=== PATIENT | female | born 1940 | race Caucasian/White ===

== ENCOUNTER 2018-07-21 13:03 | Inpatient (IN) ==
--- NOTE | 2018-07-21 14:52 | CT ---
EXAM: CT of the chest without contrast History: Cough. Comparison: CT abdomen pelvis 07/21/2018 Technique: Multiplanar CT images through the thorax were obtained without the administration of IV c ontrast Findings: Heart size is upper limits of normal. Trace pericardial fluid. Coronary calcifications. No thoracic aortic aneurysm. No pathologically enlarged thoracic lymph nodes. No consolidation. N o pleural fluid and no pneumothorax. 6 mm noncalcified nodule within the right middle lobe coronal i mage number 20. Bilateral calcified lung nodules. For details in the upper abdomen, please see dedicated CT abdomen pelvis done on the same day. Fluid is seen distending the stomach. No acute osseous abnormalities. Impression: 1. No acute intrathoracic process. 2. Coronary artery disease and trace pericardial fluid. 3. 6 mm indeterminate right middle lobe noncalcified nodule. Recommend follow-up chest CT in 6 jelani hs
--- NOTE | 2018-07-21 14:55 | CT ---
Exam: CT abdomen pelvis without intravenous contrast. Comparison: 12/26/2009. Reason for exam: Pain with diarrhea. FINDINGS: Image interpretation is limited by the lack of intravenous contrast administration. No pleural effusion, or focal consolidation in the partially imaged lung bases. Emphysematous disease is seen in the partially imaged lung bases. The spleen and adrenal glands appear grossly unremarkable. The gallbladder appears grossly unremarkable within limitations of a noncontrasted study. 1.3 cm hyperdense cystic structure in the left kidney on axial image number 22. No hydronephrosis or ureterolithiasis in either kidney. The bladder appears grossly unremarkable. Moderate stool burden is seen within the rectal vault. Fluid-filled loops of nondilated small bowel are seen throughout the abdomen and pelvis. 3.5 x 2.0 cm lipoma in the ascending colon on coronal image number 37. The appendix is not definitiv zoila seen. No inflammatory changes are seen in the expected location of the appendix. Atherosclerotic disease is seen within the aorta and distal arterial vasculature. Degenerative disease is seen in the lumbosacral spine. No suspicious appearing osteoblastic or osteo lytic lesion. Image interpretation of the osseous structures is limited by diffuse osseous demineralization. Healed left pelvic fracture. IMPRESSION: Fluid-filled loops of nondilated small bowel seen throughout the abdomen pelvis may be p hysiologic but could also represent enteritis. 2. Moderate stool burden in the rectal vault raising consideration for constipation/impaction. 3. Ascending colon lipoma measuring 3.5 x 2.0 cm. 4. Healed pelvic fractures. 5. Hyperdensity in the left kidney likely hemorrhagic cysts. Ultrasound could be performed for furt her characterization
[2018-07-21] MEDS ORDERED: CITRATE OF MAGNESIA PO STA (15:10)
[2018-07-21] MEDS: AMARYL PO SCH (16:56)
[2018-07-21] MEDS: GLUCOPHAGE PO SCH (16:56)
[2018-07-21] MEDS: SODIUM CHLORIDE 1,000 ML IV SCH (16:57)
[2018-07-21] MEDS ORDERED: NON-FORMULARY MEDICATION (Metformin Hcl [Glucophage] 1,000 MG) PO SCH (17:00)
[2018-07-21] MEDS ORDERED: NON-FORMULARY MEDICATION (Glimepiride [Amaryl] 4 MG) PO SCH (17:00)
[2018-07-21] MEDS ORDERED: HALDOL ONE (20:47)
[2018-07-21] MEDS ORDERED: HALDOL IM STA (20:55)
[2018-07-22] MEDS: SODIUM CHLORIDE 1,000 ML IV SCH ×2 (05:11→20:55)
[2018-07-22] MEDS: SYNTHROID PO SCH (05:35)
[2018-07-22] MEDS: TOPROL XL PO SCH (08:53)
[2018-07-22] MEDS: K-DUR PO SCH (08:59)
[2018-07-22] MEDS: HYDROCHLOROTHIAZIDE PO SCH (08:59)
[2018-07-22] MEDS: PLAVIX PO SCH (08:59)
[2018-07-22] MEDS: AMARYL PO SCH ×2 (08:59→16:39)
[2018-07-22] MEDS ORDERED: NON-FORMULARY MEDICATION (Atorvastatin Calcium [Lipitor] 40 MG) PO SCH (09:00)
[2018-07-22] MEDS: NORVASC PO SCH (09:00)
[2018-07-22] MEDS: ONGLYZA PO SCH (09:00)
[2018-07-22] MEDS: LIPITOR PO SCH (09:00)
[2018-07-22] MEDS: COZAAR PO SCH (09:00)
[2018-07-22] MEDS: GLUCOPHAGE PO SCH ×2 (09:00→16:40)
[2018-07-22] MEDS ORDERED: NON-FORMULARY MEDICATION (Losartan Potassium 50 MG) PO SCH (09:00)
[2018-07-22] MEDS ORDERED: LOVENOX ONE (09:17)
[2018-07-22] MEDS: LOVENOX SUBCUT SCH (09:18)
--- NOTE | 2018-07-22 09:42 | PCM.PROG ---
Attending Provider: ATTENDING PROVIDER: Dr. FALGUNI ALCALA DATE OF SERVICE: 07/22/18 SUBJECTIVE: This 77 year old WHITE/ F was hospitalized 07/21/18 with severe constipation and possible large bowel obstruction. The patient is able to pass stool around impaction with diarrhea. Dementia is worsening. Skin is dry. BUN and creatinine abnormal and Hypokalemia. The patient's condition has improved this morning. Her hydration seems to have improved. Skin Turgor getting better. is in the room as expected. REVIEW OF SYSTEMS: CONSTITUTIONAL: No night sweats. No fatigue, malaise, lethargy. No fever or chills. HEENT: Eyes: No visual changes. No eye pain. No eye discharge. ENT: No runny nose. No epistaxis. No sinus pain. No odynophagia. No congestion. RESPIRATORY: No cough, no congestion. No hemoptysis. No shortness of breath. CARDIOVASCULAR: No angina symptoms. No CHF symptoms. No atypical chest pain for CAD. No palpitations. No orthopnea.. GASTROINTESTINAL: No abdominal pain. No nausea or vomiting. No diarrhea or constipation. No hematemesis. No hematochezia. GENITOURINARY: No urgency. No frequency. No dysuria. No hematuria. No obstructive symptoms. No discharge. No pain. No significant abnormal bleeding. MUSCULOSKELETAL: No musculoskeletal pain; no joint swelling. NEUROLOGICAL: Awake, alert, oriented to time, place and person. No headache. No neck pain. No syncope. No seizures. No dizziness. PSYCHIATRIC: Not anxious. No depression. No suicidal thoughts. No homicidal thoughts. SKIN: No rash. No lesions. No wounds. ENDOCRINE: No unexplained weight loss. No weight gain. HEMATOLOGIC/LYMPHATIC: No anemia. No purpura. No petechiae. No prolonged or excessive bleeding. No palpable lymph nodes. PHYSICAL EXAMINATION: GENERAL: The patient is awake, alert and oriented, lying in bed in no distress. VITAL SIGNS: Temperature 97.4 F, Pulse 105, Respiratory Rate 18, BP 119/79, Pulse Ox 96% HEENT: Head normocephalic, atraumatic. Eyes: Extraocular muscles are intact. Pupils are equal, round and reactive to light and accommodation. Ears: No lesions. Nose appeared normal. Throat: No exudate or erythema. NECK: Supple. No JVD, no carotid bruit. No lymphadenopathy or thyromegaly. LUNGS: Clear to auscultation. Percussion note normal. Chest symmetrical. HEART: S1, S2, no S3. No murmurs. No cyanosis or clubbing. No ascites. Pulses: Dorsalis pedis and posterior tibial pulses +1 to +2 both sides. ABDOMEN: Soft. Non-tender. Bowel sounds active. No CVA tenderness. No mass felt. EXTREMITIES: No edema. Full range of motion of all extremities, equal. NEUROLOGIC: No focal deficit. Cranial nerves II through XII are grossly intact. No headache, no double vision or headache. SKIN: Warm and dry. Intact. Turgor-normal. LYMPHATIC: No palpable lymph nodes/no lymphedema. MUSCULOSKELETAL: Normal joints with no swelling. Muscle tone is normal. LAB REVIEW: 07/22/18 04:30 07/22/18 04:30 07/22/18 04:30: Sodium 139.0, Potassium 2.90 L, Chloride 98.7, Carbon Dioxide 28.4, Anion Gap 14.80, BUN 31.4 H, Creatinine 1.32 H, Estimated GFR (MDRD) 39.00 , BUN/Creatinine Ratio 23.78, Glucose 123.8 H D, Calcium 8.97, Total Bilirubin 0.55, AST 33.5, ALT 14.0, Alkaline Phosphatase 55.1, Total Protein 6.80, Albumin 4.16, Globulin 2.64, Albumin/Globulin Ratio 1.57 07/22/18 04:30: WBC 8.51, RBC 4.79, Hgb 13.9, Hct 42.6, MCV 88.9, MCH 29.0, MCHC 32.6, RDW Coeff of Kenji 13.2, Plt Count 328, Immature Gran % (Auto) 0.6, Neut % (Auto) 59.0, Lymph % (Auto) 31.0, [place] % (Auto) 8.3, Eos % (Auto) 0.7, Baso % (Auto) 0.4, Immature Gran # (Auto) 0.1, Neut # (Auto) 5.0, Lymph # (Auto ) 2.6, [place] # (Auto) 0.7, Eos # (Auto) 0.1, Baso # (Auto) 0.0 07/21/18 17:00: Urine Color Yellow, Urine Clarity Cloudy, Urine pH 5.5, Ur Specific [place] 1.020, Urine Protein Trace, Urine Glucose (UA) Negative, Urine Ketones 1+, Urine Blood Trace-intact, Urine Nitrite Positive, Urine Bilirubin Negative, Urine Urobilinogen 0.2, Ur Leukocyte Esterase 3+, Urine Microscopic RBC 2-5, Urine Microscopic WBC 10-20, Ur Squamous Epith Cells 2-5, Urine Bacteria 3+ 07/21/18 13:55: Influ A Molecular Assay Negative by naat, Influ B Molecular Assay Negative by naat 07/21/18 13:50: Lactic Acid 3.81 H 07/21/18 13:50: Procalcitonin 0.05 07/21/18 13:50: Sodium 138.6, Potassium 3.22 L, Chloride 95.5 L, Carbon Dioxide 26.0, Anion Gap 20.32, BUN 37.8 H, Creatinine 1.73 H, Estimated GFR (MDRD) 28.00 , BUN/Creatinine Ratio 21.84, Glucose 237.3 H, Calcium 9.37, Total Bilirubin 0.78, AST 31.1, ALT 15.0, Alkaline Phosphatase 59.7, Total Protein 7.20, Albumin 4.52, Globulin 2.68, Albumin/Globulin Ratio 1.68 07/21/18 13:50: WBC 9.24, RBC 4.46, Hgb 13.3, Hct 40.1, MCV 89.9, MCH 29.8, MCHC 33.2, RDW Coeff of Kenji 13.3, Plt Count 349, Immature Gran % (Auto) 0.3, Neut % (Auto) 63.4, Lymph % (Auto) 28.2, [place] % (Auto) 7.0, Eos % (Auto) 0.5, Baso % (Auto) 0.6, Immature Gran # (Auto) 0.0, Neut # (Auto) 5.8, Lymph # (Auto ) 2.6, [place] # (Auto) 0.7, Eos # (Auto) 0.1, Baso # (Auto) 0.1 ASSESSMENT: Please see below. 1. Fecal impaction 2. Dehydration 3. Dementia 4. Diabetes Mellitus 5. Hypokalemia PLAN: 1. Hydrate patient. 2. Fleets and soap enema 3. Monitor CBC and CMP 4. Patient on stool softener. 5. All diagnosis explained to . 6. K-tab 20meq three times a day Plan and coordination of the patient's care discussed in the presence of Editor Index and nurse. SCRIBED BY: DENISE FOSTER Meter Changes Records Clerk scribed while in presence of service performed by Dr. FALGUNI ALCALA on 07/22/18 ([id number])
[2018-07-22] MEDS ORDERED: BACTRIM DS 800/160 MG PO SCH (11:00)
[2018-07-22] MEDS: BACTRIM DS 800/160 MG PO SCH ×2 (13:10→21:39)
[2018-07-22] MEDS ORDERED: MILK OF MAGNESIA PO PRN (18:48)
[2018-07-23] MEDS: SYNTHROID PO SCH (06:02)
[2018-07-23] MEDS ORDERED: ROCEPHIN 1 GM in SODIUM CHLORIDE 50 ML IV STA (08:17)
[2018-07-23] MEDS ORDERED: GLUCOPHAGE PO SCH ×2 (08:21→17:30)
--- NOTE | 2018-07-23 08:56 | PCM.PROG ---
Attending Provider: ATTENDING PROVIDER: Dr. FALGUNI ALCALA This patient is seen with Nona Dunn, Nurse Practitioner. DATE OF SERVICE: 07/23/18 SUBJECTIVE: This 77 year old WHITE/ F was hospitalized 07/21/18. The patient is resting comfortably. She still isn't eating much. Potassium is lower. The patient had two bowel movements. REVIEW OF SYSTEMS: CONSTITUTIONAL: No night sweats. No fatigue, malaise, lethargy. No fever or chills. HEENT: Eyes: No visual changes. No eye pain. No eye discharge. ENT: No runny nose. No epistaxis. No sinus pain. No odynophagia. No congestion. RESPIRATORY: No cough, no congestion. No hemoptysis. No shortness of breath. CARDIOVASCULAR: No angina symptoms. No CHF symptoms. No atypical chest pain for CAD. No palpitations. No orthopnea.. GASTROINTESTINAL: No abdominal pain. No nausea or vomiting. Constipation. No hematemesis. No hematochezia. Decreased appetite. GENITOURINARY: No urgency. No frequency. No dysuria. No hematuria. No obstructive symptoms. No discharge. No pain. No significant abnormal bleeding. MUSCULOSKELETAL: No musculoskeletal pain; no joint swelling. Weakness. NEUROLOGICAL: Awake, alert, oriented to time, place and person. No headache. No neck pain. No syncope. No seizures. No dizziness. PSYCHIATRIC: Not anxious. No depression. No suicidal thoughts. No homicidal thoughts. SKIN: No rash. No lesions. No wounds. ENDOCRINE: No unexplained weight loss. No weight gain. HEMATOLOGIC/LYMPHATIC: No anemia. No purpura. No petechiae. No prolonged or excessive bleeding. No palpable lymph nodes. PHYSICAL EXAMINATION: GENERAL: The patient is awake, alert and oriented, lying in bed in no distress. VITAL SIGNS: Temperature 98.5 F, Pulse 83, Respiratory Rate 20, BP 117/68, Pulse Ox 97% HEENT: Head normocephalic, atraumatic. Eyes: Extraocular muscles are intact. Pupils are equal, round and reactive to light and accommodation. Ears: No lesions. Nose appeared normal. Throat: No exudate or erythema. NECK: Supple. No JVD, no carotid bruit. No lymphadenopathy or thyromegaly. LUNGS: Diminished breath sounds. Clear to auscultation. Percussion note normal. Chest symmetrical. HEART: Regular rate. S1, S2, no S3. No murmurs. No cyanosis or clubbing. No ascites. Pulses: Dorsalis pedis and posterior tibial pulses +1 to +2 both sides. ABDOMEN: Soft. Non-tender. Bowel sounds active. No CVA tenderness. No mass felt. EXTREMITIES: No edema. Full range of motion of all extremities, equal. NEUROLOGIC: No focal deficit. Cranial nerves II through XII are grossly intact. No headache, no double vision or headache. Flat affect. SKIN: Not dry. Intact. Turgor-normal. LYMPHATIC: No palpable lymph nodes/no lymphedema. MUSCULOSKELETAL: Normal joints with no swelling. Muscle tone is normal. LAB REVIEW: 07/23/18 05:20 07/23/18 05:20 07/23/18 05:20: Sodium 140.3, Potassium 3.08 L, Chloride 103.5, Carbon Dioxide 28.3, Anion Gap 11.58, BUN 15.5, Creatinine 1.11, Estimated GFR (MDRD) 47.00, BUN/Creatinine Ratio 13.96, Glucose 67.4 L, Calcium 8.35 L, Total Bilirubin 0.44 , AST 27.9, ALT 11.1, Alkaline Phosphatase 49.7 L, Total Protein 5.66 L, Albumin 3.37 L, Globulin 2.29, Albumin/Globulin Ratio 1.47 07/23/18 05:20: WBC 6.33, RBC 3.80 L, Hgb 11.3 L, Hct 34.1 L D, MCV 89.7, MCH 29.7, MCHC 33.1, RDW Coeff of Kenji 13.5, Plt Count 291, Immature Gran % (Auto) 0.2, Neut % (Auto) 48.6, Lymph % (Auto) 41.4, [place] % (Auto) 7.7, Eos % (Auto) 1.6, Baso % (Auto) 0.5, Immature Gran # (Auto) 0.0, Neut # (Auto) 3.1, Lymph # ( Auto) 2.6, [place] # (Auto) 0.5, Eos # (Auto) 0.1, Baso # (Auto) 0.0 07/22/18 15:28: Total Creatine Kinase 64.4, Troponin I 0.050 07/22/18 09:16: TSH 5.860 H 07/22/18 09:16: Free T4 2.21 H ASSESSMENT: Please see below. 1. Acute dehydration 2. Constipation 3. Dementia 4. Hypokalemia 5. UTI, culture pending. PLAN: 1. Potassium 20meq PO three times a day 2. Discontinue Amaryl 3. 1 gram Rocephin IV once Plan and coordination of the patient's care discussed in the presence of Archery Instructor and nurse. SCRIBED BY: Kelly THURSTON scribed while in presence of service performed by Dr. Alcala/Nona Dunn APRN on 07/23/18 ([id number])
[2018-07-23] MEDS: LIPITOR PO SCH ×2 (09:20→11:26)
[2018-07-23] MEDS: BACTRIM DS 800/160 MG PO SCH ×2 (09:20→11:26)
[2018-07-23] MEDS: HYDROCHLOROTHIAZIDE PO SCH ×2 (09:20→11:26)
[2018-07-23] MEDS: K-DUR PO SCH ×5 (09:20→16:40)
[2018-07-23] MEDS: PLAVIX PO SCH ×2 (09:20→11:27)
[2018-07-23] MEDS: NORVASC PO SCH ×2 (09:20→11:25)
[2018-07-23] MEDS: COZAAR PO SCH ×2 (09:21→11:25)
[2018-07-23] MEDS: TOPROL XL PO SCH ×2 (09:21→11:27)
[2018-07-23] MEDS: SODIUM CHLORIDE 1,000 ML IV SCH (09:21)
[2018-07-23] MEDS: LOVENOX SUBCUT SCH (09:22)
[2018-07-23] MEDS: AMARYL PO SCH (11:16)
[2018-07-23] MEDS: GLUCOPHAGE PO SCH (11:17)
[2018-07-23] MEDS: DEXTROSE 5%-1/2NS IV SOLUTION 1,000 ML IV SCH (12:08)
[2018-07-23] MEDS: ONGLYZA PO SCH (12:09)
[2018-07-24] MEDS: DEXTROSE 5%-1/2NS IV SOLUTION 1,000 ML IV SCH (02:45)
[2018-07-24] MEDS: SYNTHROID PO SCH (05:36)
[2018-07-24] MEDS: COZAAR PO SCH (08:44)
[2018-07-24] MEDS: ROCEPHIN 1 GM in SODIUM CHLORIDE 50 ML IV SCH (08:44)
[2018-07-24] MEDS: LIPITOR PO SCH (08:44)
[2018-07-24] MEDS: PLAVIX PO SCH (08:45)
[2018-07-24] MEDS: K-DUR PO SCH ×3 (08:45→17:45)
[2018-07-24] MEDS: NORVASC PO SCH (08:45)
[2018-07-24] MEDS: LOVENOX SUBCUT SCH (08:45)
[2018-07-24] MEDS: TOPROL XL PO SCH (08:45)
[2018-07-24] MEDS: HYDROCHLOROTHIAZIDE PO SCH (08:45)
--- NOTE | 2018-07-24 12:10 | DI ---
EXAM: Abdomen one-view HISTORY: Diarrhea FINDINGS: Normal bowel gas pattern. No pathologic calcifications. No large free intraperitoneal ga s. No abundance of retained colonic stool. No acute findings of the skeleton. IMPRESSION: Normal bowel gas pattern.
[2018-07-24] MEDS: HUMULIN R SUBCUT PRN ×2 (17:50→20:22)
[2018-07-25] MEDS: SYNTHROID PO SCH (05:37)
[2018-07-25] MEDS: HUMULIN R SUBCUT PRN ×3 (05:47→21:20)
[2018-07-25] MEDS: ROCEPHIN 1 GM in SODIUM CHLORIDE 50 ML IV SCH (08:13)
[2018-07-25] MEDS: HYDROCHLOROTHIAZIDE PO SCH (08:13)
[2018-07-25] MEDS: COZAAR PO SCH (08:13)
[2018-07-25] MEDS: PLAVIX PO SCH (08:13)
[2018-07-25] MEDS: TOPROL XL PO SCH (08:14)
[2018-07-25] MEDS: NORVASC PO SCH (08:14)
[2018-07-25] MEDS: K-DUR PO SCH ×3 (08:14→16:53)
[2018-07-25] MEDS: LIPITOR PO SCH (08:16)
[2018-07-25] MEDS: LOVENOX SUBCUT SCH (08:17)
[2018-07-25] MEDS ORDERED: HALDOL IM STA (15:06)
[2018-07-26] MEDS: SYNTHROID PO SCH (05:43)
--- NOTE | 2018-07-26 07:45 | PN ---
DATE OF SERVICE: 07/22/18 SUBJECTIVE: The patient was hospitalized with fecal impaction also has UTI with gram negative rods. The patient will be started on Septra. The patient also has atrial fibrillation which she never had it before. For now we will start her on Lovenox 1mg per kg. Very likely the patient is going to need Eliquis. We will also do echocardiogram to evaluate LV function and also LA size and valvular structures. The effects of Eliquis discussed with the and the patient. The patient is confused, disoriented but alert and up and about and does all activity of daily living. CONDITION: Stable. CHADS 2 VASC score more than 4. TIME SPENT: More than 30 minutes. Plan and coordination of the patient's care discussed in the presence of nurse. MICHELLE
--- NOTE | 2018-07-26 09:00 | PN ---
DATE OF SERVICE: 07/23/18 SUBJECTIVE: The patient was seen and examined with Nurse Practitioner. The patient had hypoglycemia spelled. Amaryl has been taken off. Atrial fibrillation has subsided. This morning she is in sinus rhythm. First degree AV block. The patient is demented but alert when I saw her this afternoon. The is with her . She was feeling a lot better. She was confused but alert. PHYSICAL EXAMINATION: HEENT: Head normocephalic, atraumatic. Eyes: Extraocular muscles are intact. Pupils are equal, round and reactive to light and accommodation. Ears: No lesions. Nose appeared normal. Throat: No exudate or erythema. NECK: Supple. No JVD, no carotid bruit. No lymphadenopathy or thyromegaly. LUNGS: Clear to auscultation. Percussion note normal. Chest symmetrical. HEART: S1, S2, no S3. No murmurs. No cyanosis or clubbing. No ascites. Pulses: Dorsalis pedis and posterior tibial pulses +1 to +2 bilaterally. ABDOMEN: Soft. Nontender. Bowel sounds active. No CVA tenderness. No mass felt. EXTREMITIES: No edema. Full range of motion of all extremities, equal. NEUROLOGIC: No focal deficit. Cranial nerves II through XII are grossly intact. No headache, no double vision or headache. SKIN: Not dry. Intact. Turgor - normal. LYMPHATIC: No palpable lymph nodes/no lymphedema. MUSCULOSKELETAL: Normal joints with no swelling. Muscle tone is normal. CONDITION: Improving. TIME SPENT: More than 30 minutes. Plan and coordination of the patient's care discussed in the presence of nurse. MICHELLE
[2018-07-26] MEDS: TOPROL XL PO SCH (09:19)
[2018-07-26] MEDS: COZAAR PO SCH (09:19)
[2018-07-26] MEDS: HYDROCHLOROTHIAZIDE PO SCH (09:19)
[2018-07-26] MEDS: LOVENOX SUBCUT SCH (09:20)
[2018-07-26] MEDS: ROCEPHIN 1 GM in SODIUM CHLORIDE 50 ML IV SCH (09:20)
[2018-07-26] MEDS: LIPITOR PO SCH (09:20)
[2018-07-26] MEDS: NORVASC PO SCH (09:20)
[2018-07-26] MEDS: K-DUR PO SCH ×2 (09:20→11:22)
[2018-07-26] MEDS: PLAVIX PO SCH (09:20)
--- NOTE | 2018-07-26 09:42 | PCM.PROG ---
Attending Provider: ATTENDING PROVIDER: Dr. FALGUNI ALCALA This patient is seen with Nona Dunn, Nurse Practitioner. DATE OF SERVICE: 07/26/18 SUBJECTIVE: This 77 year old WHITE/ F was hospitalized 07/21/18. The patient is lying in bed resting comfortably. She had some agitation last night. Blood sugars have improved. The states that he can handle her at home and he declines home health. REVIEW OF SYSTEMS: CONSTITUTIONAL: Weakness. No night sweats. No malaise, lethargy. No fever or chills. HEENT: Eyes: No visual changes. No eye pain. No eye discharge. ENT: No runny nose. No epistaxis. No sinus pain. No odynophagia. No congestion. RESPIRATORY: No cough, no congestion. No hemoptysis. No shortness of breath. CARDIOVASCULAR: No angina symptoms. No CHF symptoms. No atypical chest pain for CAD. No palpitations. No orthopnea.. GASTROINTESTINAL: No abdominal pain. No nausea or vomiting. No diarrhea or constipation. No hematemesis. No hematochezia. GENITOURINARY: No urgency. No frequency. No dysuria. No hematuria. No obstructive symptoms. No discharge. No pain. No significant abnormal bleeding. MUSCULOSKELETAL: No musculoskeletal pain; no joint swelling. NEUROLOGICAL: Confusion. No headache. No neck pain. No syncope. No seizures. No dizziness. PSYCHIATRIC: Not anxious. No depression. No suicidal thoughts. No homicidal thoughts. SKIN: No rash. No lesions. No wounds. ENDOCRINE: No unexplained weight loss. No weight gain. HEMATOLOGIC/LYMPHATIC: No anemia. No purpura. No petechiae. No prolonged or excessive bleeding. No palpable lymph nodes. PHYSICAL EXAMINATION: GENERAL: The patient is awake, alert and oriented to person lying in bed in no distress. VITAL SIGNS: Temperature 97.8 F, Pulse 64, Respiratory Rate 16, BP 133/77, Pulse Ox 99% HEENT: Head normocephalic, atraumatic. Eyes: Extraocular muscles are intact. Pupils are equal, round and reactive to light and accommodation. Ears: No lesions. Nose appeared normal. Throat: No exudate or erythema. NECK: Supple. No JVD, no carotid bruit. No lymphadenopathy or thyromegaly. LUNGS: Diminished breath sounds. Clear to auscultation. Percussion note normal. Chest symmetrical. HEART: Regular rate and rhythm. S1, S2, no S3. No murmurs. No cyanosis or clubbing. No ascites. Pulses: Dorsalis pedis and posterior tibial pulses +1 to +2 both sides. ABDOMEN: Soft. Non-tender. Bowel sounds active. No CVA tenderness. No mass felt. EXTREMITIES: No edema. Full range of motion of all extremities, equal. NEUROLOGIC: No focal deficit. Cranial nerves II through XII are grossly intact. No headache, no double vision or headache. SKIN: Not dry. Intact. Turgor-normal. LYMPHATIC: No palpable lymph nodes/no lymphedema. MUSCULOSKELETAL: Normal joints with no swelling. Muscle tone is normal. LAB REVIEW: 07/26/18 04:40 07/26/18 04:40 07/26/18 04:40: Sodium 139.0, Potassium 4.03, Chloride 106.9, Carbon Dioxide 25.4, Anion Gap 10.73, BUN 12.4, Creatinine 1.10, Estimated GFR (MDRD) 48.00, BUN/Creatinine Ratio 11.27, Glucose 98.7 D, Calcium 9.17, Total Bilirubin 0.40 , AST 36.5 H, ALT 18.7, Alkaline Phosphatase 49.7 L, Total Protein 5.75 L, Albumin 3.35 L, Globulin 2.40, Albumin/Globulin Ratio 1.39 07/26/18 04:40: WBC 8.37, RBC 3.99 L, Hgb 11.7 L, Hct 36.7 L, MCV 92.0, MCH 29.3 , MCHC 31.9, RDW Coeff of Kenji 14.1, Plt Count 264, Immature Gran % (Auto) 0.2, Neut % (Auto) 48.5, Lymph % (Auto) 42.1, [place] % (Auto) 6.5, Eos % (Auto) 2.3, Baso % (Auto) 0.4, Immature Gran # (Auto) 0.0, Neut # (Auto) 4.1, Lymph # (Auto ) 3.5 H, [place] # (Auto) 0.5, Eos # (Auto) 0.2, Baso # (Auto) 0.0 ASSESSMENT: 1. UTI positive for E.coli and proteus. 2. Dehydration, resolved. 3. Constipation - resolved. 4. Dementia with behavioral disturbances. PLAN: 1. Discharge home. 2. To followup in the office next week. 3. Discontinue diabetic medications. 4. K-Dur 10 mEq daily. 5. Omnicef 300 mg b.i.d. times five days. 6. Continue Plavix, 7. Continue Cozaar daily. 8. Accu-Checks once daily at home. Plan and coordination of the patient's care discussed in the presence of Bun Panner and nurse. CONDITION: Stable SCRIBED BY: BERNIE PENA Operations And Intelligence Assistant scribed while in presence of service performed by Dr. Alcala/Nona Dunn APRN on 07/26/18 ([id number])
--- NOTE | 2018-07-26 11:00 | PN ---
DATE OF SERVICE: 07/24/18 SUBJECTIVE: The patient is doing well and alert. No hypoglycemia noted. No atrial fibrillation, sinus rhythm first degree AV block. I discussed the case with the who is oriented to time, place and person. He doesn't want any blood thinner of any kind other than aspirin. The patient's doesn't have any contraindication to Novel blood thinners or Coumadin but the patient's declined. He says that the patient's fall risks are high, she has dementia and she shouldn't be on any high risk medications. I agreed with him. Beside that the patient's atrial fibrillation was initially with her other medical problems involving her kidney infection. Very likely lately last two to three days she has been in sinus rhythm with first degree AV block. REVIEW OF SYSTEMS: CONSTITUTIONAL: No night sweats. No fatigue, malaise, lethargy. No fever or chills. HEENT: Eyes: No visual changes. No eye pain. No eye discharge. ENT: No runny nose. No epistaxis. No sinus pain. No sore throat. No odynophagia. No congestion. RESPIRATORY: No cough, no congestion. No hemoptysis. No shortness of breath. CARDIOVASCULAR: No angina symptoms. No CHF symptoms. No atypical chest pain for CAD. No palpitations. No PND. No orthopnea. GASTROINTESTINAL: No abdominal pain. No nausea or vomiting. No diarrhea or constipation. No hematemesis. No hematochezia. GENITOURINARY: No urgency. No frequency. No dysuria. No hematuria. No obstructive symptoms. No discharge. No pain. No significant abnormal bleeding. MUSCULOSKELETAL: No musculoskeletal pain; no joint swelling. NEUROLOGICAL: No headache. No neck pain. No syncope. No seizures. No dizziness. PSYCHIATRIC: Not anxious. No depression. No suicidal thoughts. No homicidal thoughts. SKIN: No rash. No lesions. No wounds. ENDOCRINE: No unexplained weight loss. No weight gain. HEMATOLOGIC/LYMPHATIC: No anemia. No purpura. No petechiae. No prolonged or excessive bleeding. No palpable lymph nodes. PHYSICAL EXAMINATION: HEENT: Head normocephalic, atraumatic. Eyes: Extraocular muscles are intact. Pupils are equal, round and reactive to light and accommodation. Ears: No lesions. Nose appeared normal. Throat: No exudate or erythema. NECK: Supple. No JVD, no carotid bruit. No lymphadenopathy or thyromegaly. LUNGS: Clear to auscultation. Percussion note normal. Chest symmetrical. HEART: S1, S2, no S3. No murmurs. Rhythm regular. No cyanosis or clubbing. No ascites. Pulses: Dorsalis pedis and posterior tibial pulses +1 to +2 bilaterally. ABDOMEN: Soft. Nontender. Bowel sounds active. No CVA tenderness. No mass felt. EXTREMITIES: No edema. Full range of motion of all extremities, equal. NEUROLOGIC: No focal deficit. Cranial nerves II through XII are grossly intact. No headache, no double vision or headache. SKIN: Not dry. Intact. Turgor - normal. LYMPHATIC: No palpable lymph nodes/no lymphedema. MUSCULOSKELETAL: Normal joints with no swelling. Muscle tone is normal. LABS: Hgb 11.1, hct 34, WBC 6,000 normal differential, creatinine 1.1, BUN 9, potassium 3.9. ASSESSMENT: 1. Urinary tract infection, seems to be resolving 2. Severe constipation seems to be resolving 3. Diabetes seems to be under control, no hypoglycemia noted PLAN: 1. Will discontinue Amaryl 2. Will restart her on Onglyza and Metformin CONDITION: Stable. ADDENDUM: The patient is on Plavix and we will continue the Plavix. I may do ultrasound of the heart before discharge. TIME SPENT: More than 30 minutes. Plan and coordination of the patient's care discussed in the presence of nurse. MICHELLE
--- NOTE | 2018-07-26 11:20 | CM.DICTOOL ---
ADMISSION: 07/21/18 15:15 DISCHARGE: 07/26/18 DATE OF SERVICE: 07/26/18 FINAL DIAGNOSIS UTI-E.COLI AND PROTEUS MIRABILIS OBSTIPATION DEHYDRATION HYPOKALEMIA HYPOGLYCEMIA (RESOLVED) DEMENTIA WITH BEHAVIORS PAROXYSMAL A-FIB WITH RVR - NEW AND RESOLVED HYPERTENSION ANEMIA DIABETES MELLITUS, TYPE 2 DYSLIPIDEMIA THYROID DISEASE UGI BLEED, 01/01 ABDOMINAL TUMOR EXCISED, CVA, 2001 APPENDECTOMY TUBAL LIGATION, COSMETIC CHIN SURGERY, 1998 NEVER SMOKER LAST VITALS Temp Pulse Resp BP Pulse Ox 97.8 F 64 16 133/77 99 07/26/18 05:40 07/26/18 05:40 07/26/18 05:40 07/26/18 05:40 07/26/18 05:40 TAKE THESE MEDICATIONS AT HOME Amlodipine Besylate (Norvasc) 5 mg PO DAILY [facility] Last Admin: 07/25/18 08:14 Dose: 5 mg Atorvastatin Calcium (Lipitor) 40 mg PO DAILY [facility] Last Admin: 07/25/18 08:16 Dose: 40 mg Cefdinir (Omnicef) 300 mg PO BID x5 DAYS ONLY Clopidogrel Bisulfate (Plavix) 75 mg PO DAILY [facility] Last Admin: 07/25/18 08:13 Dose: 75 mg Donepezil HCL (Aricept) 10 mg PO at BEDTIME Hydrochlorothiazide (Hydrochlorothiazide) 25 mg PO DAILY [facility] Last Admin: 07/25/18 08:13 Dose: 25 mg Levothyroxine Sodium (Synthroid) 75 mcg PO QDAC [facility] Last Admin: 07/26/18 05:43 Dose: 75 mcg Losartan Potassium (Cozaar) 50 mg PO DAILY [facility] Last Admin: 07/25/18 08:13 Dose: 50 mg Memantine HCL (Namenda) 10 mg PO DAILY Metoprolol Succinate (Toprol Xl) 50 mg PO DAILY [facility] Last Admin: 07/25/18 08:14 Dose: 50 mg Potassium Chloride (K-Dur) 10 meq PO DAILYWM [facility] Last Admin: 07/25/18 16:53 Dose: 20 meq ALLERGIES ciprofloxacin [From Cipro] Adverse Reaction (Verified 07/21/18 13:14) ciprofloxacin HCl [From Cipro] Adverse Reaction (Verified 07/21/18 13:14) NEW PRESCRIPTIONS: Cefdinir [Omnicef] 300 mg PO BID 5 Days #10 capsule 07/26/18 Hydrochlorothiazide 25 mg PO DAILY #30 tablet 07/26/18 Losartan Potassium [Cozaar] 50 mg PO DAILY #30 tablet 07/26/18 Potassium Chloride [K-Tab ER] 10 meq PO DAILY #30 tablet.er 07/26/18 SMOKING: NEVER SMOKER DISEASE SPECIFIC EDUCATION: OBSTIPATION DEHYDRATION UTI, ORGANISMS (E.COLI AND PROTEUS MIRABILIS) PAROXYSMAL ATRIAL FIBRILLATION HYPOKALEMIA HYPOGLYCEMIA HOME MEDS AND CHANGES MADE DURING THIS STAY NEW PRESCRIPTIONS FOLLOW-UP HOME HEALTH SERVICES LAB REVIEW: 07/26/18 04:40 07/26/18 04:40 07/26/18 04:40: Sodium 139.0, Potassium 4.03, Chloride 106.9, Carbon Dioxide 25.4, Anion Gap 10.73, BUN 12.4, Creatinine 1.10, Estimated GFR (MDRD) 48.00, BUN/Creatinine Ratio 11.27, Glucose 98.7 D, Calcium 9.17, Total Bilirubin 0.40 , AST 36.5 H, ALT 18.7, Alkaline Phosphatase 49.7 L, Total Protein 5.75 L, Albumin 3.35 L, Globulin 2.40, Albumin/Globulin Ratio 1.39 07/26/18 04:40: WBC 8.37, RBC 3.99 L, Hgb 11.7 L, Hct 36.7 L, MCV 92.0, MCH 29.3 , MCHC 31.9, RDW Coeff of Kenji 14.1, Plt Count 264, Immature Gran % (Auto) 0.2, Neut % (Auto) 48.5, Lymph % (Auto) 42.1, [place] % (Auto) 6.5, Eos % (Auto) 2.3, Baso % (Auto) 0.4, Immature Gran # (Auto) 0.0, Neut # (Auto) 4.1, Lymph # (Auto ) 3.5 H, [place] # (Auto) 0.5, Eos # (Auto) 0.2, Baso # (Auto) 0.0 PLAN: DISCHARGE HOME TODAY, 07/26/[address] ALCALA IN HIS OFFICE ON 07/28/18 AT 10:30 AND 11:00 A.M. (BOTH OF YOU HAVE APPOINTMENTS) RESUME YOUR HOME MEDICATIONS PER LIST PROVIDED BY THE NURSING STAFF DO NOT RESUME ANY OF YOUR DIABETIC MEDICATIONS GLIMEPIRIDE (AMARYL) METFORMIN (GLUCOPHAGE) SAXAGLIPTIN HCL (ONGLYZA) PLEASE NOTE THE REDUCTION IN YOUR LOSARTAN-HCTZ TO 50-25 MG DAILY NEW PRESCRIPTIONS POTASSIUM (K-DUR) 20 MEQ, TAKE ONE TABLET BY MOUTH DAILY CEFDINIR (OMNICEF) 300 MG, TAKE ONE CAPSULE BY MOUTH TWICE DAILY FOR 5 DAYS ONLY LOSARTAN-HCTZ (COZAAR/HCTZ) 50-25 MG, TAKE ONE TABLET BY MOUTH DAILY ACTIVITY GET PLENTY OF REST AT HOME. GRADUALLY INCREASE YOUR ACTIVITY LEVEL ACCORDING TO YOUR TOLERATION MONITOR YOUR BLOOD SUGARS EVERY MORNING. KEEP A LOG OF THE VALUES AND BRING THEM TO YOUR NEXT APPOINTMENT DIET TOLERATED SUMMARY THE PATIENT IS ALERT AND ORIENTED TO PERSON. AT TIMES SHE IS IMPULSIVE AND ATTEMPTS TO BE INDEPENDENT WITH ADL'S. SHE REQUIRES ASSISTANCE TO BE SAFE. SHE IS ABLE TO AMBULATE WITH CONTACT GUARD BUT DOES NOT REQUIRE A ROLLING WALKER. SHE BECOMES DISORIENTED OCCASIONALLY AND REQUIRES REORIENTATION. SHE AND HER , XU, DESIRE THAT SHE RETURN HOME AT DISCHARGE. REFERRAL FOR HOME HEALTH NURSING, PT/OT SERVICES WAS OFFERED JUST PRIOR TO DISCHARGE. HOWEVER, THE SPOUSE, XU, DECLINED THE OFFER SAYING, "I BELIEVE SHE WILL DO JUST FINE ONCE SHE'S AT HOME." THE OFFER WAS LEFT OPEN FOR THE REFERRAL IN CASE HE CHANGES HIS MIND. THE SKIN TURGOR IS INTACT AND WELL HYDRATED AT DISCHARGE. THE PATIENT'S APPETITE IS GOOD. SHE HAS BEEN ABLE TO MOVE HER BOWELS RESULTING IN SOFT STOOLS. SHE AND HER SPOUSE ARE AWARE AND AGREEABLE FOR DISCHARGE TODAY. BOTH WILL RETURN TO THE OFFICE FOR FOLLOW UP MENTIONED IN THE DISCHARGE PLANS ABOVE. CURRENT CODE STATUS DO NOT INTUBATE, CPR ONLY LUCINA BHAGAT, COAL TRAMMER FALGUNI ALCALA M.D.
[2018-07-26] MEDS: HUMULIN R SUBCUT PRN (11:22)
[2018-07-26 14:02] VITALS: BP 107/64; TEMP 98.9
--- NOTE | 2018-07-27 07:59 | PN ---
DATE OF SERVICE: 07/25/18 SUBJECTIVE: The patient was seen and examined today. She is doing fine. She is alert but confused. She doesn't have hypoglycemia anymore. She is repeatedly asking the questions. She was oriented to person. She called me by name but not to time and place. REVIEW OF SYSTEMS: CONSTITUTIONAL: No night sweats. No fatigue, malaise, lethargy. No fever or chills. HEENT: Eyes: No visual changes. No eye pain. No eye discharge. ENT: No runny nose. No epistaxis. No sinus pain. No sore throat. No odynophagia. No congestion. RESPIRATORY: No cough, no congestion. No hemoptysis. No shortness of breath. CARDIOVASCULAR: No angina symptoms. No CHF symptoms. No atypical chest pain for CAD. No palpitations. No PND. No orthopnea. GASTROINTESTINAL: No abdominal pain. No nausea or vomiting. No diarrhea or constipation. No hematemesis. No hematochezia. GENITOURINARY: No urgency. No frequency. No dysuria. No hematuria. No obstructive symptoms. No discharge. No pain. No significant abnormal bleeding. MUSCULOSKELETAL: No musculoskeletal pain; no joint swelling. NEUROLOGICAL: No headache. No neck pain. No syncope. No seizures. No dizziness. PSYCHIATRIC: Not anxious. No depression. No suicidal thoughts. No homicidal thoughts. SKIN: No rash. No lesions. No wounds. ENDOCRINE: No unexplained weight loss. No weight gain. HEMATOLOGIC/LYMPHATIC: No anemia. No purpura. No petechiae. No prolonged or excessive bleeding. No palpable lymph nodes. PHYSICAL EXAMINATION: HEENT: Head normocephalic, atraumatic. Eyes: Extraocular muscles are intact. Pupils are equal, round and reactive to light and accommodation. Ears: No lesions. Nose appeared normal. Throat: No exudate or erythema. NECK: Supple. No JVD, no carotid bruit. No lymphadenopathy or thyromegaly. LUNGS: Clear to auscultation. Percussion note normal. Chest symmetrical. HEART: S1, S2, no S3. No murmurs. No cyanosis or clubbing. No ascites. Pulses: Dorsalis pedis and posterior tibial pulses +1 to +2 bilaterally. ABDOMEN: Soft. Nontender. Bowel sounds active. No CVA tenderness. No mass felt. EXTREMITIES: No edema. Full range of motion of all extremities, equal. NEUROLOGIC: No focal deficit. Cranial nerves II through XII are grossly intact. No headache, no double vision or headache. SKIN: Not dry. Intact. Turgor - normal. LYMPHATIC: No palpable lymph nodes/no lymphedema. MUSCULOSKELETAL: Normal joints with no swelling. Muscle tone is normal. ASSESSMENT: 1. UTI, under control she is afebrile on Ertapenem 2. Atrial fibrillation, now is in sinus rhythm first degree AV block. The doesn't want any Novel blood thinners or Coumadin. Of course the patient is in sinus rhythm anyway. The patient had episode of atrial fibrillation on admission likely from UTI. CONDITION: Stable. PLAN: 1. Atrial fibrillation and complication discussed. 2. Advised to have Holter Monitor as an outpatient to document that the patient doesn't have atrial fibrillation as an outpatient but the patient's declined. The patient's dementia and also the fall risks is so high that I agree with the patient not to put the patient on Novel blood thinners. TIME SPENT: More than 30 minutes. Plan and coordination of the patient's care discussed in the presence of nurse. MICHELLE
--- NOTE | 2018-07-27 09:31 | DS ---
DATE OF SERVICE: 07/26/18 FINAL DIAGNOSIS UTI-E.COLI AND PROTEUS MIRABILIS OBSTIPATION DEHYDRATION HYPOKALEMIA HYPOGLYCEMIA (RESOLVED) DEMENTIA WITH BEHAVIORS PAROXYSMAL A-FIB WITH RVR - NEW AND RESOLVED HYPERTENSION ANEMIA DIABETES MELLITUS, TYPE 2 DYSLIPIDEMIA THYROID DISEASE UGI BLEED, 01/01 ABDOMINAL TUMOR EXCISED, CVA, 2001 APPENDECTOMY TUBAL LIGATION, COSMETIC CHIN SURGERY, 1998 NEVER SMOKER LAST VITALS: Temp Pulse Resp BP Pulse Ox 97.8 F 64 16 133/77 99 07/26/18 05:40 07/26/18 05:40 07/26/18 05:40 07/26/18 05:40 07/26/18 05:40 DISCHARGE INSTRUCTIONS: DISCHARGE HOME TODAY, 07/26/18. RETURN TO SEE DR. ALCALA IN HIS OFFICE ON 07/28/18 AT 10:30 AND 11:00 A.M. (BOTH OF YOU HAVE APPOINTMENTS). TAKE THESE MEDICATIONS AT HOME: Amlodipine Besylate (Norvasc) 5 mg PO DAILY [facility] Atorvastatin Calcium (Lipitor) 40 mg PO DAILY [facility] Cefdinir (Omnicef) 300 mg PO BID x5 DAYS ONLY Clopidogrel Bisulfate (Plavix) 75 mg PO DAILY [facility] Donepezil HCL (Aricept) 10 mg PO at BEDTIME Hydrochlorothiazide (Hydrochlorothiazide) 25 mg PO DAILY [facility] Levothyroxine Sodium (Synthroid) 75 mcg PO QDAC [facility] Losartan Potassium (Cozaar) 50 mg PO DAILY [facility] Memantine HCL (Namenda) 10 mg PO DAILY Metoprolol Succinate (Toprol Xl) 50 mg PO DAILY [facility] Potassium Chloride (K-Dur) 10 meq PO DAILYWM [facility] ALLERGIES: ciprofloxacin [From Cipro] Adverse Reaction (Verified 07/21/18 13:14) ciprofloxacin HCl [From Cipro] Adverse Reaction (Verified 07/21/18 13:14) NEW PRESCRIPTIONS: Cefdinir [Omnicef] 300 mg PO BID 5 Days #10 capsule 07/26/18 Hydrochlorothiazide 25 mg PO DAILY #30 tablet 07/26/18 Losartan Potassium [Cozaar] 50 mg PO DAILY #30 tablet 07/26/18 Potassium Chloride [K-Tab ER] 10 meq PO DAILY #30 tablet.er 07/26/18 SMOKING: NEVER SMOKER DISEASE SPECIFIC EDUCATION: OBSTIPATION DEHYDRATION UTI, ORGANISMS (E.COLI AND PROTEUS MIRABILIS) PAROXYSMAL ATRIAL FIBRILLATION HYPOKALEMIA HYPOGLYCEMIA HOME MEDS AND CHANGES MADE DURING THIS STAY NEW PRESCRIPTIONS FOLLOW-UP HOME HEALTH SERVICES ACTIVITY: GET PLENTY OF REST AT HOME. GRADUALLY INCREASE YOUR ACTIVITY LEVEL ACCORDING TO YOUR TOLERATION MONITOR YOUR BLOOD SUGARS EVERY MORNING. KEEP A LOG OF THE VALUES AND BRING THEM TO YOUR NEXT APPOINTMENT DIET: TOLERATED HOSPITAL COURSE: This is a 77 year old white female who was brought to the emergency room. She was admitted through the emergency room with change of mental status. CT of the abdomen showed severe constipation. She had worsening confusion. U/A was initially abnormal which was then positive for e-coli. Initially Potassium was decreased. The patient was admitted and placed on Rocephin 1 gram IV daily. She did have about 24 hours of atrial fibrillation with RVR which resolved IV Digoxin and Cardizem. She does not have a history of atrial fibrillation and was asymptomatic. Over the course of several days she was given IV fluids normal saline at 75cc an hour. On Thursday she was experiencing some hypoglycemia with sugars into the 50's with weakness and lethargy. We placed her on D5 1/2 normal saline and discontinued her diabetic mediations. She has been very confused during her hospital stay. CT of the brain was normal. When her sugar improved she became more alert and had more energy. Over the course of the weekend she has been eating more and sugars have stabilized without IV fluids. Again, the atrial fibrillation has resolved. She was placed on Lovenox here for clot prevention however since she has been in normal sinus rhythm and the atrial fibrillation only lasted approximately 24 hours there is no needed for continued treatment with blood thinners. She had low grade initially with the Rocephin which is appropriate considering the culture. She steadily improved. She is going to go home Omnicef 300mg PO twice a day for the next 5 days along with a decrease in Losartan to 50mg daily, Potassium 10meq daily. She has been in stable condition for the past 48 hours. She has been up and about, going to the bathroom and her appetite has improved. I discussed with the who is also older in age and he declines any home health for any assistance or physical and occupational therapy. We will followup with her in the office a repeat CBC and CMP and we will continue to follow her closely. TIME SPENT: More than 60 minutes. MICHELLE
== END 2018-07-26 14:11 | disposition home or self-care (01) | DRG 641 ==
LOC: ED 13:03 → MEDSURG B 15:15
PROVIDERS: ADMIT Internal Medicine; ATTEND Internal Medicine
DX: E86.0 Dehydration (principal); F03.91 Unspecified dementia, unspecified severity, with behavioral disturbance; E87.6 Hypokalemia; E16.2 Hypoglycemia, unspecified; E11.9 Type 2 diabetes mellitus without complications; E78.5 Hyperlipidemia, unspecified; K59.00 Constipation, unspecified; K56.41 Fecal impaction; I48.91 Unspecified atrial fibrillation; I10 Essential (primary) hypertension; D64.9 Anemia, unspecified
CPT/HCPCS: 36415; 80053; 81001; 82550; 82947; 82962; 83036; 83605; 84145; 84439; 84443; 84484; 85025; 87040; 87086; 87186; 87493; 87502; 87651; 93005; 93010; 97802; 99284

== ENCOUNTER 2020-01-02 10:03 | Inpatient (IN) ==
[2020-01-02] MEDS ORDERED: TYLENOL PO PRN (10:19)
[2020-01-02] MEDS ORDERED: NITROSTAT SL PRN (10:19)
[2020-01-02] MEDS ORDERED: VISTARIL INJ IM PRN (10:19)
[2020-01-02] MEDS ORDERED: ATROPINE SULFATE PFS IVP PRN (10:19)
[2020-01-02 10:43] VITALS: BMI 21.2
[2020-01-02 10:53] LABS: BASOPHILS % (AUTO) 0.4 % (0.0-3.0); EOSINOPHILS # (AUTO) 0.3 K/ul (0.0-0.7); EOSINOPHILS % (AUTO) 4.6 % (0.0-7.0); HEMOGLOBIN 8.7 g/dl (12.0-16.0); IMMATURE GRANULOCYTE % (AUTO) 0.2 % (0.0-5.0); LYMPHOCYTES # (AUTO) 1.8 K/uL (0.60-3.4); LYMPHOCYTES % (AUTO) 31.4 (10.0-50.0); MEAN CORPUSCULAR HGB CONC 31.1 (31.8-35.4); MEAN CORPUSCULAR VOLUME 94.3 fl (81.0-99.0); MONOCYTES # (AUTO) 0.5 K/uL (0.4-2.0); MONOCYTES % (AUTO) 8.9 (0-10); NEUTROPHILS # (AUTO) 3.1 K/ul (2.0-6.9); NEUTROPHILS % (AUTO) 54.5 % (42.2-75.2); PLATELET COUNT 284 10^3/uL (140-440); RDW COEFFICIENT OF VARIATION 15.2 % (11.6-14.8); RED BLOOD COUNT 2.97 10^6/ul (4.20-5.40); RETICULOCYTE % 2.14 %; RETICULOCYTE HEMOGLOBIN 31.8; WHITE BLOOD COUNT 5.64 K/ul (4.6-10.2)
[2020-01-02 11:05] LABS: ALANINE AMINOTRANSFERASE 9.2 U/L (0-35); ALBUMIN 3.18 g/dL (3.5-5.0); ALKALINE PHOSPHATASE 80.9 U/L (53-141); BILIRUBIN,TOTAL 0.4 mg/dL (0.2-1.3); BLOOD UREA NITROGEN 15.9 mg/dL (7-17); CALCIUM 8.96 mg/dL (8.4-10.2); CARBON DIOXIDE 28.6 mmol/L (22-30.0); CHLORIDE 102.1 mmol/L (98-107); CREATININE 0.91 mg/dL (0.60-1.30); GLUCOSE 172.3 mg/dL (74-106); SODIUM 134.5 mmol/L (134.5-145); TOTAL PROTEIN 5.54 g/dL (6.3-8.2)
[2020-01-02 11:12] LABS: IRON 33.8 ug/dL (37-170)
[2020-01-02 11:41] LABS: FERRITIN 12.2 ng/mL (11.1-264.0)
[2020-01-02 11:54] LABS: BILIRUBIN,URINE Negative (NEGATIVE); CLARITY,URINE Clear (CLEAR); COLOR,URINE Yellow (YELLOW); GLUCOSE, URINE (UA) Trace (NEGATIVE); KETONES,URINE Negative (NEGATIVE); LEUKOCYTE ESTERASE ,URINE 1+ (NEGATIVE); NITRITE,URINE Negative (NEGATIVE); PH,URINE 7.5 (5-9); URINE, BLOOD Negative (NEGATIVE); UROBILINOGEN,URINE 0.2 (0.2)
[2020-01-02 12:00] LABS: BACTERIA,URINE 3+ (NOT PRESENT); SQUAMOUS EPITHELIAL CELL,UR NOT PRESENT (0-5)
[2020-01-02 12:11] LABS: FOLATE 5.26 ng/mL
--- NOTE | 2020-01-02 12:16 | DI ---
EXAM: Chest two views HISTORY: Shortness of air COMPARISON: None TECHNIQUE: Two views of the chest were performed FINDINGS: Mild bilateral interstitial prominence. Possible trace bilateral pleural effusions. No v isible pneumothorax. Heart top normal in size. Mediastinal contour normal, noting atherosclerosis. IMPRESSION: Mild bilateral interstitial prominence may relate to mild pulmonary vascular congestion versus less likely pneumonitis. Possible trace bilateral pleural effusions.
[2020-01-02] MEDS: GLUCOPHAGE PO SCH (17:26)
[2020-01-02] MEDS: ARICEPT PO SCH (20:18)
[2020-01-02] MEDS: ATIVAN PO SCH (20:19)
[2020-01-02] MEDS: ROCEPHIN 1 GM/50 ML D5W 1 GM/50 ML BAG IV SCH (20:19)
[2020-01-02 20:56] LABS: HEMATOCRIT 38.3 % (37.0-47.0); HEMOGLOBIN 12.4 g/dl (12.0-16.0)
[2020-01-03 05:37] LABS: BASOPHILS % (AUTO) 0.5 % (0.0-3.0); EOSINOPHILS # (AUTO) 0.2 K/ul (0.0-0.7); EOSINOPHILS % (AUTO) 3.8 % (0.0-7.0); HEMATOCRIT 35.7 % (37.0-47.0); HEMOGLOBIN 11.8 g/dl (12.0-16.0); IMMATURE GRANULOCYTE % (AUTO) 0.2 % (0.0-5.0); LYMPHOCYTES # (AUTO) 1.9 K/uL (0.60-3.4); LYMPHOCYTES % (AUTO) 30.8 (10.0-50.0); MEAN CORPUSCULAR HGB CONC 33.1 (31.8-35.4); MEAN CORPUSCULAR VOLUME 88.1 fl (81.0-99.0); MONOCYTES # (AUTO) 0.7 K/uL (0.4-2.0); MONOCYTES % (AUTO) 11.3 (0-10); NEUTROPHILS # (AUTO) 3.4 K/ul (2.0-6.9); NEUTROPHILS % (AUTO) 53.4 % (42.2-75.2); PLATELET COUNT 249 10^3/uL (140-440); RDW COEFFICIENT OF VARIATION 15.5 % (11.6-14.8); RED BLOOD COUNT 4.05 10^6/ul (4.20-5.40)
[2020-01-03 05:50] LABS: ALANINE AMINOTRANSFERASE 9.1 U/L (0-35); ALBUMIN 3.01 g/dL (3.5-5.0); ALKALINE PHOSPHATASE 84.2 U/L (53-141); ASPARTATE AMINO TRANSFERASE 21.4 U/L (14-36); BILIRUBIN,TOTAL 0.96 mg/dL (0.2-1.3); BLOOD UREA NITROGEN 14.1 mg/dL (7-17); CALCIUM 8.92 mg/dL (8.4-10.2); CARBON DIOXIDE 29.5 mmol/L (22-30.0); CHLORIDE 102.1 mmol/L (98-107); CREATININE 0.77 mg/dL (0.60-1.30); GLUCOSE 122.7 mg/dL (74-106); SODIUM 134.2 mmol/L (134.5-145); TOTAL PROTEIN 5.37 g/dL (6.3-8.2)
[2020-01-03] MEDS: SYNTHROID PO SCH (05:55)
--- NOTE | 2020-01-03 08:26 | PCM.PROG ---
Attending Provider: ATTENDING PROVIDER: Dr. FALGUNI ALCALA This patient is seen with Lorena Harley, Nurse Practitioner. DATE OF SERVICE: 01/03/20 SUBJECTIVE: This 79 year old /WHITE F was hospitalized 01/02/20. The patient is in the bed resting comfortably. The patient has received two units of packed red cells. This morning H&H has improved. Potassium is a little low so we will replace. The patient has been up and down. She has poor oral and nutritional intake. REVIEW OF SYSTEMS: CONSTITUTIONAL: No night sweats. No fatigue, malaise, lethargy. No fever or chills. Weakness. HEENT: Eyes: No visual changes. No eye pain. No eye discharge. ENT: No runny nose. No epistaxis. No sinus pain. No odynophagia. No congestion. RESPIRATORY: No cough, no congestion. No hemoptysis. Shortness of breath improved. CARDIOVASCULAR: No angina symptoms. No CHF symptoms. No atypical chest pain for CAD. No palpitations. No orthopnea.. GASTROINTESTINAL: No abdominal pain. No nausea or vomiting. No diarrhea or constipation. No hematemesis. No hematochezia. GENITOURINARY: No urgency. No frequency. No dysuria. No hematuria. No obstructive symptoms. No discharge. No pain. No significant abnormal bleeding. MUSCULOSKELETAL: No musculoskeletal pain; no joint swelling. NEUROLOGICAL: Awake, alert, oriented to time, place and person. No headache. No neck pain. No syncope. No seizures. No dizziness. PSYCHIATRIC: Not anxious. No depression. No suicidal thoughts. No homicidal thoughts. SKIN: No rash. No lesions. No wounds. ENDOCRINE: No unexplained weight loss. No weight gain. HEMATOLOGIC/LYMPHATIC: No anemia. No purpura. No petechiae. No prolonged or excessive bleeding. No palpable lymph nodes. PHYSICAL EXAMINATION: GENERAL: The patient is awake, alert and oriented, lying in bed in no distress. VITAL SIGNS: Temperature 98.1 F, Pulse 68, Respiratory Rate 16, BP 152/63, Pulse Ox 97% HEENT: Head normocephalic, atraumatic. Eyes: Extraocular muscles are intact. Pupils are equal, round and reactive to light and accommodation. Ears: No lesions. Nose appeared normal. Throat: No exudate or erythema. NECK: Supple. No JVD, no carotid bruit. No lymphadenopathy or thyromegaly. LUNGS: Diminished breath sounds. Clear to auscultation. Percussion note normal. Chest symmetrical. HEART: S1, S2, no S3. No murmurs. No cyanosis or clubbing. No ascites. Pulses: Dorsalis pedis and posterior tibial pulses +1 to +2 both sides. ABDOMEN: Soft. Non-tender. Bowel sounds active. No CVA tenderness. No mass felt. EXTREMITIES: No edema. Full range of motion of all extremities, equal. NEUROLOGIC: No focal deficit. Cranial nerves II through XII are grossly intact. No headache, no double vision or headache. SKIN: Not dry. Intact. Turgor-normal. LYMPHATIC: No palpable lymph nodes/no lymphedema. MUSCULOSKELETAL: Normal joints with no swelling. Muscle tone is normal. LAB REVIEW: 01/03/20 05:25 01/03/20 05:25 01/03/20 05:25: Sodium 134.2 L, Potassium 3.28 L, Chloride 102.1, Carbon Dioxide 29.5, Anion Gap 5.88, BUN 14.1, Creatinine 0.77, Estimated GFR (MDRD) 72.00, BUN/Creatinine Ratio 18.31, Glucose 122.7 H, Calcium 8.92, Total Bilirubin 0.96, AST 21.4, ALT 9.1, Alkaline Phosphatase 84.2, Total Protein 5.37 L, Albumin 3.01 L, Globulin 2.36, Albumin/Globulin Ratio 1.27 01/03/20 05:25: WBC 6.30, RBC 4.05 L, Hgb 11.8 L, Hct 35.7 L, MCV 88.1 D, MCH 29.1, MCHC 33.1, RDW Coeff of Kenji 15.5 H, Plt Count 249, Immature Gran % (Auto) 0.2, Neut % (Auto) 53.4, Lymph % (Auto) 30.8, [place] % (Auto) 11.3 H, Eos % (Auto) 3.8, Baso % (Auto) 0.5, Neut # (Auto) 3.4, Lymph # (Auto) 1.9, [place] # (Auto) 0.7, Eos # (Auto) 0.2, Baso # (Auto) 0.0, Immature Gran # (Auto) 0.0 01/02/20 20:50: Hgb 12.4 D, Hct 38.3 D 01/02/20 11:47: Urine Color Yellow, Urine Clarity Clear, Urine pH 7.5, Ur Specific [place] 1.020, Urine Protein Negative, Urine Glucose (UA) Trace H, Urine Ketones Negative, Urine Blood Negative, Urine Nitrite Negative, Urine Bilirubin Negative, Urine Urobilinogen 0.2, Ur Leukocyte Esterase 1+ H, Urine Microscopic WBC 10-20, Ur Squamous Epith Cells Not present, Urine Bacteria 3+ 01/02/20 10:40: Blood Type A POSITIVE, Antibody Screen Negative, Crossmatch (AHG) See Detail 01/02/20 10:40: Transferrin 273 01/02/20 10:40: Iron 33.8 L, TIBC 364, % Saturation 9, Vitamin B12 297 01/02/20 10:40: Sodium 134.5, Potassium 3.97, Chloride 102.1, Carbon Dioxide 28.6, Anion Gap 7.77, BUN 15.9, Creatinine 0.91, Estimated GFR (MDRD) 59.00, BUN/Creatinine Ratio 17.47, Glucose 172.3 H, Calcium 8.96, Ferritin 12.20, Total Bilirubin 0.40, AST 22.0, ALT 9.2, Alkaline Phosphatase 80.9, Total Protein 5.54 L, Albumin 3.18 L, Globulin 2.36, Albumin/Globulin Ratio 1.34, Folate 5.26 01/02/20 10:40: WBC 5.64, RBC 2.97 L, Hgb 8.7 L, Hct 28.0 L, MCV 94.3, MCH 29.3, MCHC 31.1 L, RDW Coeff of Kenji 15.2 H, Plt Count 284, Immature Gran % (Auto) 0.2, Neut % (Auto) 54.5, Lymph % (Auto) 31.4, [place] % (Auto) 8.9, Eos % (Auto) 4.6, Baso % (Auto) 0.4, Reticulocyte % (Auto) 2.14, Neut # (Auto) 3.1, Lymph # (Auto) 1.8, [place] # (Auto) 0.5, Eos # (Auto) 0.3, Baso # (Auto) 0.0, Immature Gran # (Auto) 0.0, Absolute Retic 0.0636, Retic Hgb Equivalent 31.8 ASSESSMENT: Please see below. 1. Symptomatic anemia 2. Generalized weakness 3. UTI 4. Dementia 5. History of hypertension 6. Diabetes Mellitus 7. History of CVA 8. Dyslipidemia PLAN: 1. Potassium 20meq BID 2. Fall precautions 3. Start Boost supplement 4. CBC and CMP in the morning. Plan and coordination of the patient's care discussed in the presence of Sports Physical Therapist and nurse. EDUCATION: CONDITION: SCRIBED BY: Kelly THURSTON scribed while in presence of service performed by Dr. Alcala/Lorena Harley APRN on 01/03/20 ([id number])
[2020-01-03] MEDS ORDERED: K-DUR PO SCH ×2 (08:30→17:00)
[2020-01-03] MEDS ORDERED: COZAAR PO SCH (09:00)
[2020-01-03] MEDS: ASPIRIN EC PO SCH (09:20)
[2020-01-03] MEDS: LIPITOR PO SCH (09:21)
[2020-01-03] MEDS: ONGLYZA PO SCH (09:21)
[2020-01-03] MEDS: ATIVAN PO SCH ×2 (09:21→20:53)
[2020-01-03] MEDS: NORVASC PO SCH (09:21)
[2020-01-03] MEDS: GLUCOPHAGE PO SCH ×2 (09:21→17:32)
[2020-01-03] MEDS: TOPROL XL PO SCH (09:21)
[2020-01-03] MEDS: NAMENDA PO SCH (09:22)
[2020-01-03] MEDS ORDERED: LASIX IVP STA (09:52)
[2020-01-03] MEDS: K-DUR PO SCH ×2 (10:58→17:32)
--- NOTE | 2020-01-03 10:59 | PN ---
DATE OF SERVICE: 01/02/2020 SUBJECTIVE: The patient was seen and examined with the Nurse Practitioner. The patient is hospitalized with symptomatic anemia. She is fatigued and tired. Hgb is 7.7 and there is no evidence of active GI bleed. We will type and cross match and transfuse a couple units and watch her any blood loss. CONDITION: Stable. TIME SPENT: More than 30 minutes. Plan and coordination of the patient's care discussed in the presence of nurse. MICHELLE
[2020-01-03] MEDS: ARICEPT PO SCH (20:53)
[2020-01-03] MEDS: ROCEPHIN 1 GM/50 ML D5W 1 GM/50 ML BAG IV SCH (20:54)
[2020-01-04] MEDS: SYNTHROID PO SCH (05:58)
[2020-01-04 06:22] LABS: BASOPHILS % (AUTO) 0.4 % (0.0-3.0); EOSINOPHILS # (AUTO) 0.3 K/ul (0.0-0.7); EOSINOPHILS % (AUTO) 4.2 % (0.0-7.0); HEMATOCRIT 36.1 % (37.0-47.0); HEMOGLOBIN 11.8 g/dl (12.0-16.0); IMMATURE GRANULOCYTE % (AUTO) 0.3 % (0.0-5.0); LYMPHOCYTES # (AUTO) 2.3 K/uL (0.60-3.4); LYMPHOCYTES % (AUTO) 33.4 (10.0-50.0); MEAN CORPUSCULAR HGB CONC 32.7 (31.8-35.4); MEAN CORPUSCULAR VOLUME 89.1 fl (81.0-99.0); MONOCYTES # (AUTO) 0.7 K/uL (0.4-2.0); MONOCYTES % (AUTO) 9.4 (0-10); NEUTROPHILS # (AUTO) 3.6 K/ul (2.0-6.9); NEUTROPHILS % (AUTO) 52.3 % (42.2-75.2); PLATELET COUNT 239 10^3/uL (140-440); RDW COEFFICIENT OF VARIATION 15.6 % (11.6-14.8); RED BLOOD COUNT 4.05 10^6/ul (4.20-5.40); WHITE BLOOD COUNT 6.92 K/ul (4.6-10.2)
[2020-01-04 06:34] LABS: ALANINE AMINOTRANSFERASE 8.3 U/L (0-35); ALBUMIN 2.89 g/dL (3.5-5.0); ALKALINE PHOSPHATASE 81.2 U/L (53-141); ASPARTATE AMINO TRANSFERASE 20.7 U/L (14-36); BILIRUBIN,TOTAL 0.52 mg/dL (0.2-1.3); BLOOD UREA NITROGEN 16.2 mg/dL (7-17); CALCIUM 8.57 mg/dL (8.4-10.2); CARBON DIOXIDE 28.4 mmol/L (22-30.0); CHLORIDE 104.8 mmol/L (98-107); CREATININE 0.95 mg/dL (0.60-1.30); GLUCOSE 109.7 mg/dL (74-106); SODIUM 136.5 mmol/L (134.5-145); TOTAL PROTEIN 5.14 g/dL (6.3-8.2)
[2020-01-04] MEDS: ASPIRIN EC PO SCH (08:46)
[2020-01-04] MEDS: NORVASC PO SCH (08:47)
[2020-01-04] MEDS: ONGLYZA PO SCH (08:47)
[2020-01-04] MEDS: NAMENDA PO SCH (08:47)
[2020-01-04] MEDS: ATIVAN PO SCH ×2 (08:47→20:40)
[2020-01-04] MEDS: TOPROL XL PO SCH (08:47)
[2020-01-04] MEDS: LIPITOR PO SCH (08:47)
[2020-01-04] MEDS: K-DUR PO SCH ×2 (08:47→16:51)
[2020-01-04] MEDS: COZAAR PO SCH (08:48)
[2020-01-04] MEDS: GLUCOPHAGE PO SCH ×2 (08:48→16:51)
[2020-01-04] MEDS: OMNICEF PO SCH (20:39)
[2020-01-04] MEDS: NIFEREX 150 PO SCH (20:39)
[2020-01-04] MEDS: ARICEPT PO SCH (20:40)
[2020-01-05 05:34] LABS: BASOPHILS % (AUTO) 0.6 % (0.0-3.0); EOSINOPHILS # (AUTO) 0.3 K/ul (0.0-0.7); EOSINOPHILS % (AUTO) 4.3 % (0.0-7.0); HEMATOCRIT 36.1 % (37.0-47.0); HEMOGLOBIN 11.7 g/dl (12.0-16.0); IMMATURE GRANULOCYTE % (AUTO) 0.2 % (0.0-5.0); LYMPHOCYTES # (AUTO) 2.1 K/uL (0.60-3.4); LYMPHOCYTES % (AUTO) 31.8 (10.0-50.0); MEAN CORPUSCULAR HGB CONC 32.4 (31.8-35.4); MEAN CORPUSCULAR VOLUME 89.8 fl (81.0-99.0); MONOCYTES # (AUTO) 0.5 K/uL (0.4-2.0); MONOCYTES % (AUTO) 7.9 (0-10); NEUTROPHILS # (AUTO) 3.6 K/ul (2.0-6.9); NEUTROPHILS % (AUTO) 55.2 % (42.2-75.2); PLATELET COUNT 258 10^3/uL (140-440); RDW COEFFICIENT OF VARIATION 15.2 % (11.6-14.8); RED BLOOD COUNT 4.02 10^6/ul (4.20-5.40); WHITE BLOOD COUNT 6.45 K/ul (4.6-10.2)
[2020-01-05] MEDS: SYNTHROID PO SCH (05:35)
[2020-01-05 05:38] VITALS: BP 159/72; TEMP 98.2
[2020-01-05 05:46] LABS: ALANINE AMINOTRANSFERASE 8.4 U/L (0-35); ALBUMIN 3.06 g/dL (3.5-5.0); ALKALINE PHOSPHATASE 82.8 U/L (53-141); ASPARTATE AMINO TRANSFERASE 20.6 U/L (14-36); BILIRUBIN,TOTAL 0.73 mg/dL (0.2-1.3); BLOOD UREA NITROGEN 15.1 mg/dL (7-17); CALCIUM 8.71 mg/dL (8.4-10.2); CARBON DIOXIDE 26.7 mmol/L (22-30.0); CHLORIDE 103.3 mmol/L (98-107); CREATININE 0.82 mg/dL (0.60-1.30); GLUCOSE 118.1 mg/dL (74-106); SODIUM 133.4 mmol/L (134.5-145); TOTAL PROTEIN 5.39 g/dL (6.3-8.2)
--- NOTE | 2020-01-05 08:42 | PCM.PROG ---
Attending Provider: ATTENDING PROVIDER: Dr. FALGUNI ALCALA This patient is seen with Lorena Harley, Nurse Practitioner. DATE OF SERVICE: 01/05/20 SUBJECTIVE: This 79 year old /WHITE F was hospitalized 01/02/20. The patient is resting in the chair comfortably. Still complaining of mild weakness. Shortness of breath has improved. She will discharge home with her . We will consult home health. REVIEW OF SYSTEMS: CONSTITUTIONAL: No night sweats. No fatigue, malaise, lethargy. No fever or chills. Weakness. HEENT: Eyes: No visual changes. No eye pain. No eye discharge. ENT: No runny nose. No epistaxis. No sinus pain. No odynophagia. No congestion. RESPIRATORY: No cough, no congestion. No hemoptysis. Shortness of breath, improved. CARDIOVASCULAR: No angina symptoms. No CHF symptoms. No atypical chest pain for CAD. No palpitations. No orthopnea.. GASTROINTESTINAL: No abdominal pain. No nausea or vomiting. No diarrhea or constipation. No hematemesis. No hematochezia. GENITOURINARY: No urgency. No frequency. No dysuria. No hematuria. No obstructive symptoms. No discharge. No pain. No significant abnormal bleeding. MUSCULOSKELETAL: No musculoskeletal pain; no joint swelling. NEUROLOGICAL: Awake, alert, oriented to time, place and person. No headache. No neck pain. No syncope. No seizures. No dizziness. PSYCHIATRIC: Not anxious. No depression. No suicidal thoughts. No homicidal thoughts. SKIN: No rash. No lesions. No wounds. ENDOCRINE: No unexplained weight loss. No weight gain. HEMATOLOGIC/LYMPHATIC: No anemia. No purpura. No petechiae. No prolonged or excessive bleeding. No palpable lymph nodes. PHYSICAL EXAMINATION: GENERAL: The patient is awake, alert and oriented, sitting in chair in no distress. VITAL SIGNS: Temperature 98.2 F, Pulse 65, Respiratory Rate 16, BP 159/72, Pulse Ox 97% HEENT: Head normocephalic, atraumatic. Eyes: Extraocular muscles are intact. Pupils are equal, round and reactive to light and accommodation. Ears: No lesions. Nose appeared normal. Throat: No exudate or erythema. NECK: Supple. No JVD, no carotid bruit. No lymphadenopathy or thyromegaly. LUNGS: Diminished breath sounds. Clear to auscultation. Percussion note normal. Chest symmetrical. HEART: S1, S2, no S3. No murmurs. No cyanosis or clubbing. No ascites. Pulses: Dorsalis pedis and posterior tibial pulses +1 to +2 both sides. ABDOMEN: Soft. Non-tender. Bowel sounds active. No CVA tenderness. No mass felt. EXTREMITIES: No edema. Full range of motion of all extremities, equal. NEUROLOGIC: No focal deficit. Cranial nerves II through XII are grossly intact. No headache, no double vision or headache. SKIN: Not dry. Intact. Turgor-normal. LYMPHATIC: No palpable lymph nodes/no lymphedema. MUSCULOSKELETAL: Normal joints with no swelling. Muscle tone is normal. LAB REVIEW: 01/05/20 05:25 01/05/20 05:25 01/05/20 05:25: WBC 6.45, RBC 4.02 L, Hgb 11.7 L, Hct 36.1 L, MCV 89.8, MCH 29.1, MCHC 32.4, RDW Coeff of Kenji 15.2 H, Plt Count 258, Immature Gran % (Auto) 0.2, Neut % (Auto) 55.2, Lymph % (Auto) 31.8, [place] % (Auto) 7.9, Eos % (Auto) 4.3, Baso % (Auto) 0.6, Neut # (Auto) 3.6, Lymph # (Auto) 2.1, [place] # (Auto) 0.5, Eos # (Auto) 0.3, Baso # (Auto) 0.0, Immature Gran # (Auto) 0.0 01/05/20 05:25: Sodium 133.4 L, Potassium 3.83, Chloride 103.3, Carbon Dioxide 26.7, Anion Gap 7.23, BUN 15.1, Creatinine 0.82, Estimated GFR (MDRD) 67.00, BUN/Creatinine Ratio 18.41, Glucose 118.1 H, Calcium 8.71, Total Bilirubin 0.73, AST 20.6, ALT 8.4, Alkaline Phosphatase 82.8, Total Protein 5.39 L, Albumin 3.06 L, Globulin 2.33, Albumin/Globulin Ratio 1.31 01/04/20 06:15: TSH 0.536 01/04/20 06:15: Hemoglobin A1c 7.28 H 01/04/20 06:15: Thyroxine (T4) 9.7 ASSESSMENT: Please see below. 1. Symptomatic anemia 2. Generalized weakness 3. UTI 4. Dementia 5. History of hypertension 6. Diabetes Mellitus 7. History of CVA 8. Dyslipidemia PLAN: 1. Discharge home 2. Omnicef 300mg for 10 days 3. Recheck sodium level in the office 4. Niferex 150mg BID continued at home 5. Home Health 6. At least one Boost a day 7. Fall precautions. 8. Followup in the office in one week Plan and coordination of the patient's care discussed in the presence of Pick Up And Delivery Driver and nurse. SCRIBED BY: DENISE FOSTER Advertising Teacher scribed while in presence of service performed by Dr. Alcala/Lorena Harley APRN on 01/05/20 ([id number])
[2020-01-05] MEDS: NAMENDA PO SCH (09:49)
[2020-01-05] MEDS: K-DUR PO SCH (09:49)
[2020-01-05] MEDS: LIPITOR PO SCH (09:49)
[2020-01-05] MEDS: OMNICEF PO SCH (09:49)
[2020-01-05] MEDS: ASPIRIN EC PO SCH (09:49)
[2020-01-05] MEDS: COZAAR PO SCH (09:50)
[2020-01-05] MEDS: GLUCOPHAGE PO SCH (09:50)
[2020-01-05] MEDS: ATIVAN PO SCH (09:50)
[2020-01-05] MEDS: NIFEREX 150 PO SCH (09:50)
[2020-01-05] MEDS: ONGLYZA PO SCH (09:50)
[2020-01-05] MEDS: NORVASC PO SCH (09:50)
[2020-01-05] MEDS: TOPROL XL PO SCH (09:50)
--- NOTE | 2020-01-05 12:19 | CM.DICTOOL ---
ADMISSION: 01/02/20 10:03 DISCHARGE: 01/05/2020 DATE OF SERVICE: 01/05/20 FINAL DIAGNOSIS SYMPTOMATIC ANEMIA GENERALIZED WEAKNESS UTI- E. COLI DEMENTIA DIABETES MELLITUS HX OF CVA HX: UTI-E.COLI AND PROTEUS MIRABILIS OBSTIPATION DEHYDRATION HYPOKALEMIA DEMENTIA WITH BEHAVIORS PAROXYSMAL A-FIB WITH RVR - RESOLVED HYPERTENSION ANEMIA DIABETES MELLITUS, TYPE 2 DYSLIPIDEMIA THYROID DISEASE UGI BLEED, 01/01 CVA, 2001 NEVER SMOKER LT HIP FRACTURE - 2019 LT LEG FRACTURE - 2019 SURGICAL HISTORY: ABDOMINAL TUMOR EXCISED, APPENDECTOMY TUBAL LIGATION, COSMETIC CHIN SURGERY, 1998 LT HIP PINNING- 07/2019 LAST VITALS Temp Pulse Resp BP Pulse Ox 98.2 F 65 16 159/72 H 97 01/05/20 05:37 01/05/20 05:37 01/05/20 05:37 01/05/20 05:37 01/05/20 05:37 TAKE THESE MEDICATIONS AT HOME Amlodipine Besylate (Norvasc) 5 mg PO DAILY [facility] Last Admin: 01/05/20 09:50 Dose: 5 mg Documented by: Atorvastatin Calcium (Lipitor) 40 mg PO DAILY [facility] Last Admin: 01/05/20 09:49 Dose: 40 mg Documented by: Cefdinir (Omnicef) 300 mg PO Q12HR FOR 10 DAYS [facility] -- ( NEW) Stop: 01/07/20 20:59 Last Admin: 01/05/20 09:49 Dose: 300 mg Documented by: Donepezil HCl (Aricept) 10 mg PO BEDTIME [facility] Last Admin: 01/04/20 20:40 Dose: 10 mg Documented by: Levothyroxine Sodium (Synthroid) 100 mcg PO QDAC [facility] Last Admin: 01/05/20 05:35 Dose: 100 mcg Documented by: Lorazepam (Ativan) 0.5 mg PO BID [facility] LAST ADM : 01/05/20 0950 Losartan Potassium (Cozaar) 50 mg PO DAILY [facility] Last Admin: 01/05/20 09:50 Dose: 50 mg Documented by: Memantine (Namenda) 10 mg PO DAILY [facility] Last Admin: 01/05/20 09:49 Dose: 10 mg Documented by: Metformin HCl (Glucophage) 500 mg PO BIDWM [facility] Last Admin: 01/05/20 09:50 Dose: 500 mg Documented by: Metoprolol Succinate (Toprol Xl) 50 mg PO DAILY [facility] Last Admin: 01/05/20 09:50 Dose: 50 mg Documented by: Polysaccharide Iron Complex (Niferex 150) 150 mg PO BID [facility] -- ( NEW) Last Admin: 01/05/20 09:50 Dose: 150 mg Documented by: Potassium Chloride (K-Dur) 20 meq PO BIDWM [facility] -- ( CHANGED ) Last Admin: 01/05/20 09:49 Dose: 20 meq Documented by: Saxagliptin Hydrochloride (Onglyza) 5 mg PO DAILY [facility] Last Admin: 01/05/20 09:50 Dose: 5 mg Documented by: ALLERGIES ciprofloxacin [From Cipro] Adverse Reaction (Verified 10/18/19 11:37) DISCONTINUED MEDICATIONS NONE NEW PRESCRIPTIONS: 1 ). Cefdinir (Omnicef) 300 mg PO Q12HR FOR 10 DAYS [facility] -- ( NEW) 2 ). Polysaccharide Iron Complex (Niferex 150) 150 mg PO BID [facility] -- ( NEW) 3 ). Potassium Chloride (K-Dur) 20 meq PO BIDWM [facility] -- ( CHANGED) SMOKING: NON- SMOKER DISEASE SPECIFIC EDUCATION: UTI ANEMIA DEMENTIA OMNICEF POTASSIUM NIFEREX COVID LAB REVIEW: 01/05/20 05:25 01/05/20 05:25 01/05/20 05:25: WBC 6.45, RBC 4.02 L, Hgb 11.7 L, Hct 36.1 L, MCV 89.8, MCH 29.1, MCHC 32.4, RDW Coeff of Kenji 15.2 H, Plt Count 258, Immature Gran % (Auto) 0.2, Neut % (Auto) 55.2, Lymph % (Auto) 31.8, [place]ine % (Auto) 7.9, Eos % (Auto) 4.3, Baso % (Auto) 0.6, Neut # (Auto) 3.6, Lymph # (Auto) 2.1, [place] # (Auto) 0.5, Eos # (Auto) 0.3, Baso # (Auto) 0.0, Immature Gran # (Auto) 0.0 01/05/20 05:25: Sodium 133.4 L, Potassium 3.83, Chloride 103.3, Carbon Dioxide 26.7, Anion Gap 7.23, BUN 15.1, Creatinine 0.82, Estimated GFR (MDRD) 67.00, BUN/Creatinine Ratio 18.41, Glucose 118.1 H, Calcium 8.71, Total Bilirubin 0.73, AST 20.6, ALT 8.4, Alkaline Phosphatase 82.8, Total Protein 5.39 L, Albumin 3.06 L, Globulin 2.33, Albumin/Globulin Ratio 1.31 01/04/20 06:15: TSH 0.536 01/04/20 06:15: Hemoglobin A1c 7.28 H 01/04/20 06:15: Thyroxine (T4) 9.7 PLAN: DISCHARGE: HOME TODAY, SUNDAY JANUARY 05, 2020 WITH [facility] AND [facility] TO FOLLOW UP WITH A OCTAVIO MALLORY NOTIFIED. PHONE # [phone], THEY ARE SEEING XU ACTIVITY: UP WITH ASSIST OF ONE. 15/12 SUPERVISION DIET: REGULAR WITH GROUND MEAT. AT LEAST ONE BOOST DAILY, ADDITIONAL NEEDED/WANTED MD FOLLOW UP: SEE DR. ALCALA / LUCINA DENTON APRN / TAMIA CANDELARIO APRN IN THE OFFICE ON MONDAY, JANUARY 13, 2020 @ 1100 AM CALL IF ANY CONCERNS, QUESTIONS OR UNABLE TO KEEP APPOINTMENT @ 885 - [phone] CODE STATUS: DO NOT RESUSCITATE MRS. ANTHONY IS PLEASANTLY CONFUSED. DOES KNOW SELF AND SEEMS TO KNOW HER . CONFUSED TO ALL OTHER ASPECTS. IS TOTAL CARE WITH ALL ADLS AND IADLS WITH PARTIALLY ABILITIES AND ATTEMPTS WITH SOME TASK. INCONTINENT OF BOWEL AND BLADDER, WEARS DEPENDS, ATTEMPTS TO TAKE SELF TO BATHROOM AT TIMES, FORGETS STEPS IN TASKS. POOR NUTRITIONAL AND FLUID INTAKE AT TIMES. REQUIRES ENCOURAGEME NT. DOES NOT HAVE BOTTOM DENTURES. MECHANICAL SOFT MEAT DIET AND BOOST SUPPLIMENT INTRODUCED AND TO BE CONTINUED AT HOME. ONE DAY SHE CONSUMED 50% OF WHAT WAS OFFERED IN A DAY.WILL PREFER TO SLEEP THROUGH MEAL TIMES. SKIN WARM, DRY AND INTACT. RESPIRATIONS AND LUNG SOUNDS ARE WNLS. A X O X 4 SPOUSE HAS BEEN TAKING CARE OF HER WITH ASSIST FROM OTHER FAMILY MEMBERS. HE WALKS WITH HER, SHE IS NOT ABLE TO UNDERSTAND HOW TO USE ANY TYPE OF ASSISTIVE DEVICE. SHE HAS FALLEN AT HOME WITH FRACTURES. LAST BM 01/04/2020. MD LUCINA MATHEW APRN ALYCE HANNAN, APRN
--- NOTE | 2020-01-09 09:28 | PN ---
DATE OF SERVICE: 01/04/2020 SUBJECTIVE: 79 year old white female hospitalized with come symptomatic anemia. The patient has been given two units of packed red cells. Hgb is 11.8, hct 36, WBC 6,900 normal differential. The patient is sleepy. No PND. No Orthopnea. The patient has no evidence of an active GI bleed. REVIEW OF SYSTEMS: CONSTITUTIONAL: No night sweats. No fatigue, malaise, lethargy. No fever or chills. HEENT: Eyes: No visual changes. No eye pain. No eye discharge. ENT: No runny nose. No epistaxis. No sinus pain. No sore throat. No odynophagia. No congestion. RESPIRATORY: No cough, no congestion. No hemoptysis. No shortness of breath. CARDIOVASCULAR: No angina symptoms. No CHF symptoms. No atypical chest pain for CAD. No palpitations. No PND. No orthopnea. GASTROINTESTINAL: No abdominal pain. No nausea or vomiting. No diarrhea or constipation. No hematemesis. No hematochezia. GENITOURINARY: No urgency. No frequency. No dysuria. No hematuria. No obstructive symptoms. No discharge. No pain. No significant abnormal bleeding. MUSCULOSKELETAL: No musculoskeletal pain; no joint swelling. NEUROLOGICAL: No headache. No neck pain. No syncope. No seizures. No dizziness. PSYCHIATRIC: Not anxious. No depression. No suicidal thoughts. No homicidal thoughts. SKIN: No rash. No lesions. No wounds. ENDOCRINE: No unexplained weight loss. No weight gain. HEMATOLOGIC/LYMPHATIC: No anemia. No purpura. No petechiae. No prolonged or excessive bleeding. No palpable lymph nodes. PHYSICAL EXAMINATION: VITAL SIGNS: Temperature 97.7, pulse 62, respiratory rate 16, blood pressure 129/70 and pulse ox 97%. HEENT: Head normocephalic, atraumatic. Eyes: Extraocular muscles are intact. Pupils are equal, round and reactive to light and accommodation. Ears: No lesions. Nose appeared normal. Throat: No exudate or erythema. NECK: Supple. No JVD, no carotid bruit. No lymphadenopathy or thyromegaly. LUNGS: Decreased breath sounds but clear to auscultation. Percussion note normal. Chest symmetrical. HEART: S1, S2, no S3. No murmurs. No cyanosis or clubbing. No ascites. Pulses: Dorsalis pedis and posterior tibial pulses +1 to +2 bilaterally. ABDOMEN: Soft. Nontender. Bowel sounds active. No CVA tenderness. No mass felt. EXTREMITIES: No edema. Full range of motion of all extremities, equal. NEUROLOGIC: No focal deficit. Cranial nerves II through XII are grossly intact. No headache, no double vision or headache. SKIN: Not dry. Intact. Turgor - normal. LYMPHATIC: No palpable lymph nodes/no lymphedema. MUSCULOSKELETAL: Normal joints with no swelling. Muscle tone is normal. LABS: Hgb 11.8, hct 36, WBC 6,900 normal differential, creatinine 0.9, BUN 16, potassium 3.6 ASSESSMENT: 1. Anemia seems to have resolved with no evidence of active GI bleed. The patient had undergone surgery fracture she had very likely surgical blood loss after that her appetite has been poor for nutritional aspect has kicked in. We will focus on the patient's appetite but the patient's dementia is getting worse. Also is sick so at home it is going to be very difficulty who is going to cook and take care of her. In any case the patient is stable and will be discharged maybe tomorrow. PLAN: 1. Will do T4 TSH and A1c TIME SPENT: More than 30 minutes. Plan and coordination of the patient's care discussed in the presence of nurse. MICHELLE
--- NOTE | 2020-01-09 14:58 | DS ---
DATE OF SERVICE: 01/05/2020 FINAL DIAGNOSIS: SYMPTOMATIC ANEMIA GENERALIZED WEAKNESS UTI- E. COLI DEMENTIA DIABETES MELLITUS HX OF CVA HISTORY: UTI-E.COLI AND PROTEUS MIRABILIS OBSTIPATION DEHYDRATION HYPOKALEMIA DEMENTIA WITH BEHAVIORS PAROXYSMAL A-FIB WITH RVR - RESOLVED HYPERTENSION ANEMIA DIABETES MELLITUS, TYPE 2 DYSLIPIDEMIA THYROID DISEASE UGI BLEED, 01/01 CVA, 2001 NEVER SMOKER LT HIP FRACTURE - 2019 LT LEG FRACTURE - 2019 SURGICAL HISTORY: ABDOMINAL TUMOR EXCISED, APPENDECTOMY TUBAL LIGATION, COSMETIC CHIN SURGERY, 1998 LT HIP PINNING- 07/2019 LAST VITALS: Temp Pulse Resp BP Pulse Ox 98.2 F 65 16 159/72 H 97 01/05/20 05:37 01/05/20 05:37 01/05/20 05:37 01/05/20 05:37 01/05/20 05:37 DISCHARGE INSTRUCTIONS: DISCHARGE: HOME TODAY, SUNDAY JANUARY 05, 2020 WITH [facility] AND [facility]. [facility] TO FOLLOW UP WITH OCTAVIO VERA NOTIFIED. PHONE # [phone], THEY ARE SEEING XU. FOLLOW UP: SEE DR. ALCALA / LUCINA DENTON APRN / TAMIA CANDELARIO APRN IN THE OFFICE ON THURSDAY, JANUARY 13, 2020 @ 1100 AM. CALL IF ANY CONCERNS, QUESTIONS OR UNABLE TO KEEP APPOINTMENT @ 055 - 0271. CODE STATUS: DO NOT RESUSCITATE. TAKE THESE MEDICATIONS AT HOME: Amlodipine Besylate (Norvasc) 5 mg PO DAILY [facility] Last Admin: 01/05/20 09:50 Dose: 5 mg Documented by: Atorvastatin Calcium (Lipitor) 40 mg PO DAILY [facility] Last Admin: 01/05/20 09:49 Dose: 40 mg Documented by: Cefdinir (Omnicef) 300 mg PO Q12HR FOR 10 DAYS [facility] -- ( NEW) Stop: 01/07/20 20:59 Last Admin: 01/05/20 09:49 Dose: 300 mg Documented by: Donepezil HCl (Aricept) 10 mg PO BEDTIME [facility] Last Admin: 01/04/20 20:40 Dose: 10 mg Documented by: Levothyroxine Sodium (Synthroid) 100 mcg PO QDAC [facility] Last Admin: 01/05/20 05:35 Dose: 100 mcg Documented by: Lorazepam (Ativan) 0.5 mg PO BID [facility] LAST ADM : 01/05/20 0950 Losartan Potassium (Cozaar) 50 mg PO DAILY [facility] Last Admin: 01/05/20 09:50 Dose: 50 mg Documented by: Memantine (Namenda) 10 mg PO DAILY [facility] Last Admin: 01/05/20 09:49 Dose: 10 mg Documented by: Metformin HCl (Glucophage) 500 mg PO BIDWM [facility] Last Admin: 01/05/20 09:50 Dose: 500 mg Documented by: Metoprolol Succinate (Toprol Xl) 50 mg PO DAILY [facility] Last Admin: 01/05/20 09:50 Dose: 50 mg Documented by: Polysaccharide Iron Complex (Niferex 150) 150 mg PO BID [facility] -- ( NEW) Last Admin: 01/05/20 09:50 Dose: 150 mg Documented by: Potassium Chloride (K-Dur) 20 meq PO BIDWM [facility] -- ( CHANGED ) Last Admin: 01/05/20 09:49 Dose: 20 meq Documented by: Saxagliptin Hydrochloride (Onglyza) 5 mg PO DAILY [facility] Last Admin: 01/05/20 09:50 Dose: 5 mg Documented by: ALLERGIES: ciprofloxacin [From Cipro] Adverse Reaction (Verified 10/18/19 11:37) DISCONTINUED MEDICATIONS: NONE NEW PRESCRIPTIONS: 1 ). Cefdinir (Omnicef) 300 mg PO Q12HR FOR 10 DAYS [facility] -- ( NEW) 2 ). Polysaccharide Iron Complex (Niferex 150) 150 mg PO BID [facility] -- ( NEW) 3 ). Potassium Chloride (K-Dur) 20 meq PO BIDWM [facility] -- ( CHANGED) SMOKING: NON- SMOKER DISEASE SPECIFIC EDUCATION: UTI ANEMIA DEMENTIA OMNICEF POTASSIUM NIFEREX COVID LAB REVIEW: 01/05/20 05:25 01/05/20 05:25 01/05/20 05:25: WBC 6.45, RBC 4.02 L, Hgb 11.7 L, Hct 36.1 L, MCV 89.8, MCH 29.1, MCHC 32.4, RDW Coeff of Kenji 15.2 H, Plt Count 258, Immature Gran % (Auto) 0.2, Neut % (Auto) 55.2, Lymph % (Auto) 31.8, [place] % (Auto) 7.9, Eos % (Auto) 4.3, Baso % (Auto) 0.6, Neut # (Auto) 3.6, Lymph # (Auto) 2.1, [place] # (Auto) 0.5, Eos # (Auto) 0.3, Baso # (Auto) 0.0, Immature Gran # (Auto) 0.0 01/05/20 05:25: Sodium 133.4 L, Potassium 3.83, Chloride 103.3, Carbon Dioxide 26.7, Anion Gap 7.23, BUN 15.1, Creatinine 0.82, Estimated GFR (MDRD) 67.00, BUN/Creatinine Ratio 18.41, Glucose 118.1 H, Calcium 8.71, Total Bilirubin 0.73, AST 20.6, ALT 8.4, Alkaline Phosphatase 82.8, Total Protein 5.39 L, Albumin 3.06 L, Globulin 2.33, Albumin/Globulin Ratio 1.31 01/04/20 06:15: TSH 0.536 01/04/20 06:15: Hemoglobin A1c 7.28 H 01/04/20 06:15: Thyroxine (T4) 9.7 ACTIVITY: UP WITH ASSIST OF ONE. 15/12 SUPERVISION DIET: REGULAR WITH GROUND MEAT. AT LEAST ONE BOOST DAILY, ADDITIONAL NEEDED/WANTED HOSPITAL COURSE: This is a white female who was recent discharged from [facility] after falling and having a left hip and left leg fracture that was repaired. She was in the rehab facility for some time. She came to the office for followup I believe December 30 or and was found to have a hgb of 7.7 after receiving the labs the next days. In the office she was very weak, short of breath. We admitted her with symptomatic anemia and generalized weakness. Gave her two units of packed red blood cells. Hgb is up to 11.7 today. Chest x-ray did show some mild pulmonary edema. She given Lasix 20mg IV after her blood however she remained asymptomatic. Today her color looks better. She is a little bit stronger she does suffered from severe dementia so does require some assistance when getting up out of bed. Urine was abnormal and grew e-coil. She was placed on Rocephin 1 gram IV daily in the hospital and then will go home on Omnicef 300mg BID for the next 7 days. The believes that he can take her home. We will get home health for nursing care as well as PT and OT. We will start her on Niferex to be given twice a day to help with her anemia. We will followup with her next week in the office. She is discharged in stable condition. TIME SPENT: More than 60 minutes. MICHELLE
--- NOTE | 2020-01-10 13:31 | HP ---
DATE OF SERVICE: 01/02/2020 REASON FOR HOSPITALIZATION/HISTORY OF PRESENT ILLNESS: 79 year old white female who is pale and weak. She is short of breath with exertion. Pleasantly confused. PAST MEDICAL HISTORY/PAST SURGICAL HISTORY: Status post left tibial fracture Status post left hip fracture History of falls Alzheimer's dementia Pedal edema History of UTI Fatigue Vitamin B12 and Vitamin D deficiency Hypertension Diabetes Mellitus type 2 A1c 7.7 01/11 Chronic kidney disease stage 2-3 CVA Osteoarthritis/Osteoporosis Left carotid bruit REVIEW OF SYSTEMS: CONSTITUTIONAL: No fever, Fatigue. HEENT: No sinus drainage, no sore throat. RESPIRATORY: No cough, no congestion. CARDIOVASCULAR: No atypical chest pain for coronary artery disease. No angina, CHF symptoms, palpitations. Shortness of breath with exertion. GASTROINTESTINAL: No melena or abdominal pain. No GERD. GENITOURINARY: No hematuria, no prostatism, no polyuria. BAND TIER: No blackout, no dizziness, no headache, no double vision. BAND TIER: Unsteady- walker MUSCULOSKELETAL: Osteoarthritis pain, no joint swelling. ENDOCRINE: No weight loss, no weight gain. SKIN: Not dry, no rash. PSYCHIATRIC: Anxious, no depression, no suicidal thoughts, no homicidal thoughts. SOCIAL HISTORY: Marital Status: . Alcohol Usage: No. Tobacco Usage: No. MEDICATIONS: Actos 30mg AM Norvasc 5mg daily Ativan 0.5mg BID Atorvastatin 40mg daily Donepezil 10mg daily Levothyroxine 100mcg Losartan 50mg daily Memantine 10mg daily Metoprolol succinate 50mg daily Onglyza 5mg PO daily Potassium Chloride 20mg daily Metformin 500mg BID ALLERGIES: No known allergies PHYSICAL EXAMINATION: GENERAL APPEARANCE: Alert. HEENT: Pallor. NECK: No JVP, no bruits. RESPIRATORY: Decreased breath sounds. CARDIOVASCULAR: S1, S2, no S3, no murmur. No cyanosis, clubbing. No ascites. GI/ABDOMEN: No tenderness. Bowel sounds are active. EXTREMITIES: edema, pulses +1, equal. BAND TIER: Deep tendon reflexes, sensory, motor and gait all normal. RECTAL/PELVIC/PROSTATE: . ASSESSMENT: 1. Symptomatic Anemia 2. Generalized weakness. 3. Status post left tibial fracture 4. Status post left hip fracture 5. History of falls 6. Alzheimer's dementia 7. Pedal edema 8. History of UTI 9. Fatigue 10.Vitamin B12 and Vitamin D deficiency 11.Hypertension 12.Diabetes Mellitus type 2 A1c 7.7 01/11 13.Chronic kidney disease stage 2-3 14.CVA 15.Osteoarthritis/Osteoporosis 16.Left carotid bruit PLAN: 1. Admit 2. Routine telemetry orders -No cardiac markers 3. CBC, CMP now and daily 4. Anemia profile 5. Type cross and administer 2 units PRBC 6. Regular diet plus Boost one daily 7. O2 at 1-2 liters nasal canula PRN 8. Fall precautions. TIME SPENT: More than 70 minutes. MTDD
== END 2020-01-05 12:50 | disposition home or self-care (01) | DRG 948 ==
LOC: MEDSURG B 10:03
PROVIDERS: ADMIT Internal Medicine; ATTEND Internal Medicine

== ENCOUNTER 2020-10-09 15:14 | Observation (INO) ==
[2020-10-09] MEDS ORDERED: NORVASC PO STA (16:49)
[2020-10-09 17:06] LABS: BASOPHILS % (AUTO) 0.2 % (0.0-3.0); EOSINOPHILS # (AUTO) 0.1 K/ul (0.0-0.7); EOSINOPHILS % (AUTO) 0.9 % (0.0-7.0); HEMATOCRIT 39.6 % (37.0-47.0); HEMOGLOBIN 12.9 g/dl (12.0-16.0); IMMATURE GRANULOCYTE % (AUTO) 0.2 % (0.0-5.0); LYMPHOCYTES # (AUTO) 2.1 K/uL (0.60-3.4); LYMPHOCYTES % (AUTO) 18.7 (10.0-50.0); MEAN CORPUSCULAR HEMOGLOBIN 30.8 pg (27.0-31.0); MEAN CORPUSCULAR HGB CONC 32.6 (31.8-35.4); MEAN CORPUSCULAR VOLUME 94.5 fl (81.0-99.0); MONOCYTES # (AUTO) 0.7 K/uL (0.4-2.0); MONOCYTES % (AUTO) 6.7 (0-10); NEUTROPHILS % (AUTO) 73.3 % (42.2-75.2); PLATELET COUNT 326 10^3/uL (140-440); RDW COEFFICIENT OF VARIATION 14.2 % (11.6-14.8); RED BLOOD COUNT 4.19 10^6/ul (4.20-5.40); WHITE BLOOD COUNT 10.97 K/ul (4.6-10.2)
--- NOTE | 2020-10-09 17:14 | DI ---
EXAM: One-view chest HISTORY: Hypertension TECHNIQUE: Single frontal view the chest was obtained. FINDINGS: The heart is normal size. Lungs are clear. The pulmonary vasculature appears normal. Th e costophrenic angles are sharp. IMPRESSION: No active cardiopulmonary disease.
[2020-10-09 17:18] LABS: ALANINE AMINOTRANSFERASE 21.4 U/L (0-35); ALBUMIN 3.95 g/dL (3.5-5.0); ALKALINE PHOSPHATASE 68.6 U/L (53-141); ASPARTATE AMINO TRANSFERASE 23.2 U/L (14-36); BILIRUBIN,TOTAL 0.56 mg/dL (0.2-1.3); BLOOD UREA NITROGEN 27.6 mg/dL (7-17); CALCIUM 9.53 mg/dL (8.4-10.2); CARBON DIOXIDE 28.7 mmol/L (22-30.0); CHLORIDE 98.1 mmol/L (98-107); CREATININE 0.92 mg/dL (0.60-1.30); GLUCOSE 260.6 mg/dL (74-106); POTASSIUM 5.02 mmol/L (3.5-5.1); SODIUM 136.7 mmol/L (134.5-145); TOTAL PROTEIN 6.42 g/dL (6.3-8.2)
[2020-10-09 17:29] LABS: TROPONIN I 0.014 ng/ml (0.0000-0.120)
--- NOTE | 2020-10-09 17:41 | ED.PDOC ---
General ED Provider: Dr. ONELIA TRACEY Chief Complaint: Hypertension Stated Complaint: Uncontrolled BP/Elevated Glucose/ Son accompanies her to ER. She has advanced Alzheimer's Time Seen by Provider: 10/09/20 16:50 Mode of Arrival: Walk-In Information Source: Patient Primary Care Provider: FALGUNI ALCALA Nursing and Triage Documentation Reviewed and Agree: Yes Does patient meet sepsis criteria?: No System Inflammatory Response Syndrome: Not Applicable Sepsis Protocol: For patient's 13 years and over: Temp is 96.8 and below OR 101 and greater Pulse >90 BPM Resp >20/minute Acutely Altered Mental Status Are patient's symptoms suggestive of a new infection, such as: -Pneumonia -Skin, Soft Tissue -Endocarditis -UTI -Bone, Joint Infection -Implantable Device -Acute Abdominal Infection -Wound Infection -Meningitis -Blood Stream Catheter Infection -Unknown Cardiovascular Complaint Exam Hypertension Complaint/Exam Onset/Duration: Recent elevation Symptoms Are: Still present Timing: Constant Reported B/P Prior to Arrival: 150/90 Aggravating: Reports Exertion and Position Alleviating: Reports Rest and Position Associated Signs and Symptoms: Reports Anxiety; Denies Chest pain, Vision changes, Recent stress, Headache, Numbness, Tingling, Weakness, Dizziness, Short of air and Swelling Related History: Reports Similar episode Related Surgical History: Reports None Cardiac Risk Factors: Reports Hypertension, Diabetes and Elevated lipids A/V [place]icking: No Papilledema Present: No JVD Present: No Carotid Bruit Present: No Femoral Pulses Bounding: No Differential Diagnoses: Endocrine Disorder, Hypertension, Hypertensive Urgency and Renal Disease Quality Indicator For Non-Traumatic Chest Pain/Syncope: EKG Performed Review of Systems Review Of Systems Constitutional: Reports No symptoms Eyes: Reports No symptoms Ears, Nose, Mouth, Throat: Reports No symptoms Respiratory: Reports No symptoms Cardiac: Reports No symptoms GI: Reports No symptoms : Reports No symptoms Musculoskeletal: Reports No symptoms Skin: Reports No symptoms Neurological: Reports No symptoms Endocrine: Reports No symptoms Hematologic/Lymphatic: Reports No symptoms All Other Systems: Reviewed and Negative [facility] Medical History Alzheimer disease CKD (chronic kidney disease) CVA (cerebral vascular accident) Diabetes mellitus Falls Fatigue Hip fracture HTN (hypertension) Left carotid bruit Osteoarthritis Osteopenia Pedal edema Tibia fracture UTI (urinary tract infection) Vitamin B12 deficiency Vitamin D deficiency Family History Other No known health problems Social History Smoking and tobacco status: Never smoker Substance use type: does not use History of recent travel: No Female Reproductive History Menstrual Hx Hysterectomy: No Hx Tubal Ligation: No Physical Exam Physical Exam Appearance: Reports Ill-appearing and Thin Ill-appearing: Mild Pain Distress: Not Applicable Eyes: Reports PETER, EOMI and Conjunctiva clear ENT: Reports Ears normal, Nose normal and Oropharynx normal Neck: Supple Respiratory: Reports Airway patent, Breath sounds clear, Breath sounds equal and Respirations nonlabored Cardiovascular: Reports RRR, Pulses normal, No rub and No murmur GI/: Reports Soft, Nontender, No masses, Bowel sounds normal and No Organomegaly Musculoskeletal: Reports Normal strength, ROM intact, No edema and No calf tenderness Skin: Reports Warm, Dry and Normal color Neurological: Reports Sensation intact, Motor intact, Reflexes intact, Cranial nerves intact, Alert and Oriented Psychiatric: Reports Affect appropriate and Mood appropriate Interpretation Radiology Interpretation Exam Interpreted: Portable CXR (: No active cardiopulmonary disease.) Physician Notification Case Discussed Physician Notified: Dr Alcala requests admission Time of Notification: 17:50 Critical Care Note Critical Care Note Total Critical Care Time (mins): 0 Course Course Hematology/Chemistry: 10/09/20 17:00 10/09/20 17:00 Orders, Labs, Meds: Lab Review 10/09/20 10/09/20 17:00 17:00 WBC 10.97 H RBC 4.19 L Hgb 12.9 Hct 39.6 MCV 94.5 MCH 30.8 MCHC 32.6 RDW Coeff of Kenji 14.2 Plt Count 326 Immature Gran % (Auto) 0.2 Neut % (Auto) 73.3 Lymph % (Auto) 18.7 [place] % (Auto) 6.7 Eos % (Auto) 0.9 Baso % (Auto) 0.2 Neut # (Auto) 8.0 H Lymph # (Auto) 2.1 [place] # (Auto) 0.7 Eos # (Auto) 0.1 Baso # (Auto) 0.0 Immature Gran # (Auto) 0.0 Sodium 136.7 Potassium 5.02 Chloride 98.1 Carbon Dioxide 28.7 Anion Gap 14.92 BUN 27.6 H Creatinine 0.92 Estimated GFR (MDRD) 59.00 BUN/Creatinine Ratio 30.00 Glucose 260.6 H Calcium 9.53 Total Bilirubin 0.56 AST 23.2 ALT 21.4 Alkaline Phosphatase 68.6 Troponin I 0.014 Total Protein 6.42 Albumin 3.95 Globulin 2.47 Albumin/Globulin Ratio 1.59 Orders Category Date Time Status PLACE PATIENT OBSERVATION .TO MEDSURG (MONITORED BED ADMISSION 10/09/20 17:53 Active ) EKG-(ED ONLY) Stat CARDIO 10/09/20 16:49 Completed ACTIVITY .Complete BR CARE 10/09/20 17:58 Active BLOOD GLUCOSE MONITORING ACCUCHECK Q6H CARE 10/09/20 17:59 Active GIVE HS SNACK 2100 CARE 10/09/20 17:58 Active INTAKE & OUTPUT Q8HR CARE 10/09/20 17:57 Active TELEMETRY MONITORING TELE CARE 10/09/20 17:53 Active VITAL SIGNS Q8HR CARE 10/09/20 17:58 Active ADA 1800 STEVAN. DIET DIETARY 10/09/20 Dinner Ordered HS SNACK DIETARY 10/09/20 Dinner Ordered CBC W/ AUTO DIFF Stat LAB 10/09/20 17:00 Completed CMP [COMPREHENSIVE METABOLIC PANEL] Stat LAB 10/09/20 17:00 Completed RESPIRATORY PANEL 2.1 (PCR) Stat LAB 10/09/20 17:55 Received TROPONIN I Stat LAB 10/09/20 17:00 Completed Acetaminophen [Tylenol] MEDS 10/09/20 17:56 Active 650 mg PO Q4H PRN Amlodipine Besylate [Norvasc] MEDS 10/09/20 16:49 Discontinued 5 mg PO ONCE STA Atorvastatin Calcium [Lipitor] MEDS 10/09/20 18:30 Ordered 40 mg PO DAILY Donepezil HCl [Aricept] MEDS 10/09/20 21:00 Ordered 10 mg PO BEDTIME Insulin Regular, Human [Humulin R] MEDS 10/09/20 18:02 Ordered See Protocol SUBCUT PRN PRN Levothyroxine Sodium [Synthroid] MEDS 10/10/20 06:30 Ordered 100 mcg PO QDAC Lorazepam [Ativan] MEDS 10/09/20 21:00 Ordered 0.5 mg PO BID Losartan Potassium [Cozaar] MEDS 10/09/20 18:30 Ordered 50 mg PO DAILY Memantine HCl [Namenda] MEDS 10/10/20 09:00 Ordered 10 mg PO DAILY Metformin HCl [Glucophage] MEDS 10/09/20 18:30 Ordered 1,000 mg PO BIDWM Metoprolol Succinate [Toprol Xl] MEDS 10/09/20 18:30 Ordered 50 mg PO DAILY Potassium Chloride [K-Dur] MEDS 10/09/20 21:00 Ordered 20 meq PO BID Potassium Chloride in 0.9%NaCl [Sodium Chloride 0.9%- MEDS 10/09/20 18:00 Ordered KCl 20 Meq] 1,000 ml IV 70 mls/hr Quetiapine Fumarate [Seroquel] MEDS 10/09/20 21:00 Ordered 25 mg PO BEDTIME Saxagliptin HCl [Onglyza] MEDS 10/10/20 09:00 Ordered 5 mg PO DAILY RESUSCITATION STATUS Routine OTHERS 10/09/20 17:57 Ordered CHEST, 1V AP ONLY Stat RADS 10/09/20 16:50 Completed Medications Generic Name Dose Route Start Last Admin Trade Name Freq PRN Reason Stop Dose Admin Acetaminophen 650 mg 10/09/20 17:56 Acetaminophen 325 Mg Tablet PO Q4H PRN Fever >101 Atorvastatin Calcium 40 mg 10/09/20 18:30 Atorvastatin Calcium 20 Mg Tablet PO DAILY BREN Donepezil HCl 10 mg 10/09/20 21:00 Donepezil Hcl 10 Mg Tablet PO BEDTIME BREN Potassium Chloride/Sodium Chloride 1,000 mls @ 70 mls/hr 10/09/20 18:00 Sodium Chloride 0.9%-Kcl 20 Meq IV .[id number] BREN Insulin Human Regular 0 unit 10/09/20 18:02 Insulin Regular, Human 100 Unit/Ml (3ml) Vial SUBCUT PRN PRN elevated Glucose level Protocol Levothyroxine Sodium 100 mcg 10/10/20 06:30 Levothyroxine Sodium 100 Mcg Tablet PO QDAC BREN Lorazepam 0.5 mg 10/09/20 21:00 Lorazepam 0.5 Mg Tablet PO BID BREN Losartan Potassium 50 mg 10/09/20 18:30 Losartan Potassium 25 Mg Tablet PO DAILY BREN Memantine 10 mg 10/10/20 09:00 Memantine Hcl 10 Mg Tablet PO DAILY BREN Metformin HCl 1,000 mg 10/09/20 18:30 Metformin Hcl 500 Mg Tablet PO BIDWM BREN Metoprolol Succinate 50 mg 10/09/20 18:30 Metoprolol Succinate 50 Mg Tab.Er.24h PO DAILY BREN Potassium Chloride 20 meq 10/09/20 21:00 Potassium Chloride 20 Meq Tab PO BID BREN Quetiapine Fumarate 25 mg 10/09/20 21:00 Quetiapine Fumarate 25 Mg Tablet PO BEDTIME BREN Saxagliptin Hydrochloride 5 mg 10/10/20 09:00 Saxagliptin Hcl 5 Mg Tablet PO DAILY BREN Discontinued Medications Generic Name Dose Route Start Last Admin Trade Name Isaiahq PRN Reason Stop Dose Admin Amlodipine Besylate 5 mg 10/09/20 16:49 10/09/20 17:11 Amlodipine Besylate 5 Mg Tablet PO 10/09/20 16:50 5 mg ONCE STA Administration Vital Signs: Temp Pulse Resp BP Pulse Ox 10/09/20 15:16 98.5 F 93 H 20 149/81 H 94 L ARTIE Risk Score ARTIE Risk Score: Risk Score Odds of by 30D 0 0.1 (0.1-0.2) 1 0.3 (0.2-0.3) 2 0.4 (0.3-0.5) 3 0.7 (0.6-0.9) 4 1.2 (1.0-1.5) 5 2.2 (1.9-2.6) 6 3.0 (2.5-3.6) 7 4.8 (3.8-6.1) Discharge Plan Discharge Patient Disposition: PLACED OBSERVATION Discharge Problem: Hypertension, uncontrolled, Diabetes mellitus, type II ED Provider: ONELIA TRACEY Condition: Fair Physician Progress Note: []
[2020-10-09] MEDS ORDERED: TYLENOL PO PRN (17:56)
[2020-10-09 17:58] LABS: BORDETELLA PARAPERTUSSIS (PCR) NOT DETECTED (NOT DETECT); BORDETELLA PERTUSSIS (PCR) NOT DETECTED (NOT DETECT); CHLAMYDIA PNEUMONIAE (PCR) NOT DETECTED (NOT DETECT); CORONAVIRUS 229E (PCR) NOT DETECTED (NOT DETECT); CORONAVIRUS HKU1 (PCR) NOT DETECTED (NOT DETECT); CORONAVIRUS NL63 (PCR) NOT DETECTED (NOT DETECT); CORONAVIRUS OC43 (PCR) NOT DETECTED (NOT DETECT); HUMAN METAPNEUMOVIRUS (PCR) NOT DETECTED (NOT DETECT); HUMAN RHINOVIRUS/ENTEROV (PCR) NOT DETECTED (NOT DETECT); INFLUENZA B (PCR) NOT DETECTED (NOT DETECT); MYCOPLASMA PNEUMONIAE (PCR) NOT DETECTED (NOT DETECT); PARAINFLUENZA VIRUS 1 (PCR) NOT DETECTED (NOT DETECT); PARAINFLUENZA VIRUS 2 (PCR) NOT DETECTED (NOT DETECT); PARAINFLUENZA VIRUS 3 (PCR) NOT DETECTED (NOT DETECT); PARAINFLUENZA VIRUS 4 (PCR) NOT DETECTED (NOT DETECT); RESPIRATORY SYNCYTIAL V (PCR) NOT DETECTED (NOT DETECT); SARS_COV_2 (PCR) NOT DETECTED (NOT DETECT)
[2020-10-09] MEDS ORDERED: SODIUM CHLORIDE 0.9%-KCL 20 MEQ 1,000 ML IV SCH (18:00)
[2020-10-09 18:46] LABS: ADENOVIRUS (PCR) NOT DETECTED (NOT DETECT)
[2020-10-09] MEDS ORDERED: VASOTEC IV IVP PRN (20:45)
[2020-10-09] MEDS: TOPROL XL PO SCH (20:49)
[2020-10-09] MEDS: ARICEPT PO SCH (20:49)
[2020-10-09] MEDS: COZAAR PO SCH (20:49)
[2020-10-09] MEDS: ATIVAN PO SCH (20:49)
[2020-10-09] MEDS: LIPITOR PO SCH (20:50)
[2020-10-09] MEDS: K-DUR PO SCH (20:50)
[2020-10-09] MEDS: GLUCOPHAGE PO SCH (20:53)
[2020-10-09] MEDS ORDERED: SEROQUEL PO SCH (21:00)
[2020-10-09] MEDS: HUMULIN R SUBCUT PRN (21:14)
[2020-10-09 21:33] VITALS: BMI 21.4
[2020-10-10] MEDS: SYNTHROID PO SCH (05:49)
[2020-10-10 05:50] LABS: BASOPHILS # (AUTO) 0.1 K/uL (0-0.2); BASOPHILS % (AUTO) 0.5 % (0.0-3.0); EOSINOPHILS # (AUTO) 0.2 K/ul (0.0-0.7); EOSINOPHILS % (AUTO) 2.2 % (0.0-7.0); HEMATOCRIT 39.8 % (37.0-47.0); HEMOGLOBIN 13.1 g/dl (12.0-16.0); IMMATURE GRANULOCYTE % (AUTO) 0.4 % (0.0-5.0); LYMPHOCYTES # (AUTO) 3.3 K/uL (0.60-3.4); LYMPHOCYTES % (AUTO) 31.5 (10.0-50.0); MEAN CORPUSCULAR HEMOGLOBIN 30.6 pg (27.0-31.0); MEAN CORPUSCULAR HGB CONC 32.9 (31.8-35.4); MONOCYTES # (AUTO) 0.8 K/uL (0.4-2.0); MONOCYTES % (AUTO) 7.2 (0-10); NEUTROPHILS # (AUTO) 6.1 K/ul (2.0-6.9); NEUTROPHILS % (AUTO) 58.2 % (42.2-75.2); PLATELET COUNT 358 10^3/uL (140-440); RDW COEFFICIENT OF VARIATION 14.3 % (11.6-14.8); RED BLOOD COUNT 4.28 10^6/ul (4.20-5.40)
[2020-10-10 06:02] LABS: ALANINE AMINOTRANSFERASE 21.6 U/L (0-35); ALBUMIN 4.16 g/dL (3.5-5.0); ALKALINE PHOSPHATASE 60.4 U/L (53-141); ASPARTATE AMINO TRANSFERASE 33.9 U/L (14-36); BILIRUBIN,TOTAL 0.84 mg/dL (0.2-1.3); BLOOD UREA NITROGEN 27.1 mg/dL (7-17); CALCIUM 9.62 mg/dL (8.4-10.2); CARBON DIOXIDE 32.2 mmol/L (22-30.0); CHLORIDE 97.8 mmol/L (98-107); CREATININE 0.71 mg/dL (0.60-1.30); GLUCOSE 84.8 mg/dL (74-106); POTASSIUM 4.55 mmol/L (3.5-5.1); SODIUM 136.8 mmol/L (134.5-145); TOTAL PROTEIN 6.82 g/dL (6.3-8.2)
[2020-10-10] MEDS: TOPROL XL PO SCH ×2 (08:26→20:59)
[2020-10-10] MEDS: ONGLYZA PO SCH (08:26)
[2020-10-10] MEDS: LIPITOR PO SCH (08:27)
[2020-10-10] MEDS: GLUCOPHAGE PO SCH ×2 (08:27→16:30)
[2020-10-10] MEDS: COZAAR PO SCH (08:27)
[2020-10-10] MEDS: K-DUR PO SCH (08:27)
[2020-10-10] MEDS: NAMENDA PO SCH (08:27)
[2020-10-10] MEDS: ATIVAN PO SCH ×2 (08:27→20:59)
[2020-10-10] MEDS: HUMULIN R SUBCUT PRN ×2 (11:30→20:59)
[2020-10-10 14:48] LABS: BILIRUBIN,URINE Negative (NEGATIVE); CLARITY,URINE Cloudy (CLEAR); COLOR,URINE Yellow (YELLOW); GLUCOSE, URINE (UA) Negative (NEGATIVE); KETONES,URINE Negative (NEGATIVE); LEUKOCYTE ESTERASE ,URINE 2+ (NEGATIVE); NITRITE,URINE Positive (NEGATIVE); PROTEIN,URINE 2+ (NEGATIVE); URINE, BLOOD Trace-lysed (NEGATIVE); UROBILINOGEN,URINE 0.2 (0.2)
[2020-10-10 14:55] LABS: BACTERIA,URINE 4+ (NOT PRESENT); MUCUS,URINE 1+ (NOT PRESENT); SQUAMOUS EPITHELIAL CELL,UR 20-30 (0-5); URINE WBC, MICROSCOPIC 50-100 (0-2)
[2020-10-10] MEDS: ROCEPHIN 1 GM/50 ML D5W 1 GM/50 ML BAG IV SCH (16:30)
[2020-10-10] MEDS ORDERED: K-DUR PO SCH (17:00)
[2020-10-10] MEDS: ARICEPT PO SCH (20:59)
[2020-10-10] MEDS: NORVASC PO SCH (20:59)
[2020-10-11 05:24] LABS: BASOPHILS # (AUTO) 0.1 K/uL (0-0.2); BASOPHILS % (AUTO) 0.5 % (0.0-3.0); EOSINOPHILS # (AUTO) 0.1 K/ul (0.0-0.7); EOSINOPHILS % (AUTO) 1.3 % (0.0-7.0); HEMATOCRIT 41.2 % (37.0-47.0); HEMOGLOBIN 13.4 g/dl (12.0-16.0); IMMATURE GRANULOCYTE % (AUTO) 0.4 % (0.0-5.0); LYMPHOCYTES # (AUTO) 3.4 K/uL (0.60-3.4); LYMPHOCYTES % (AUTO) 30.7 (10.0-50.0); MEAN CORPUSCULAR HEMOGLOBIN 30.5 pg (27.0-31.0); MEAN CORPUSCULAR HGB CONC 32.5 (31.8-35.4); MEAN CORPUSCULAR VOLUME 93.8 fl (81.0-99.0); MONOCYTES # (AUTO) 0.8 K/uL (0.4-2.0); MONOCYTES % (AUTO) 6.9 (0-10); NEUTROPHILS # (AUTO) 6.6 K/ul (2.0-6.9); NEUTROPHILS % (AUTO) 60.2 % (42.2-75.2); PLATELET COUNT 356 10^3/uL (140-440); RDW COEFFICIENT OF VARIATION 14.2 % (11.6-14.8); RED BLOOD COUNT 4.39 10^6/ul (4.20-5.40); WHITE BLOOD COUNT 10.97 K/ul (4.6-10.2)
[2020-10-11 05:39] LABS: ALANINE AMINOTRANSFERASE 19.8 U/L (0-35); ALBUMIN 3.85 g/dL (3.5-5.0); ALKALINE PHOSPHATASE 74.1 U/L (53-141); ASPARTATE AMINO TRANSFERASE 24.9 U/L (14-36); BILIRUBIN,TOTAL 0.75 mg/dL (0.2-1.3); BLOOD UREA NITROGEN 33.6 mg/dL (7-17); CALCIUM 9.3 mg/dL (8.4-10.2); CARBON DIOXIDE 27.9 mmol/L (22-30.0); CREATININE 0.93 mg/dL (0.60-1.30); GLUCOSE 136.6 mg/dL (74-106); POTASSIUM 5.11 mmol/L (3.5-5.1); SODIUM 136.4 mmol/L (134.5-145); TOTAL PROTEIN 6.35 g/dL (6.3-8.2)
[2020-10-11] MEDS: SYNTHROID PO SCH (06:08)
[2020-10-11] MEDS ORDERED: SODIUM CHLORIDE 1,000 ML IV SCH (08:30)
--- NOTE | 2020-10-11 08:44 | PCM.PROG ---
Attending Provider: ATTENDING PROVIDER: Dr. FALGUNI ALCALA This patient is seen with Nona Dunn, Nurse Practitioner. DATE OF SERVICE: 10/11/20 SUBJECTIVE: This 79 year old /WHITE F was hospitalized 10/09/20. The patient is resting comfortably in bed. She is pleasantly confused. Blood pressure less than 150 systolic. Potassium slightly elevated today. REVIEW OF SYSTEMS: CONSTITUTIONAL: Weakness. No night sweats. No fatigue, malaise, lethargy. No fever or chills. HEENT: Eyes: No visual changes. No eye pain. No eye discharge. ENT: No runny nose. No epistaxis. No sinus pain. No odynophagia. No congestion. RESPIRATORY: No cough, no congestion. No hemoptysis. No shortness of breath. CARDIOVASCULAR: No angina symptoms. No CHF symptoms. No atypical chest pain for CAD. No palpitations. No orthopnea.. GASTROINTESTINAL: No abdominal pain. No nausea or vomiting. No diarrhea or constipation. No hematemesis. No hematochezia. GENITOURINARY: No urgency. No frequency. No dysuria. No hematuria. No obstructive symptoms. No discharge. No pain. No significant abnormal bleeding. MUSCULOSKELETAL: No musculoskeletal pain; no joint swelling. NEUROLOGICAL: Awake, confusion. No headache. No neck pain. No syncope. No seizures. No dizziness. PSYCHIATRIC: Not anxious. No depression. No suicidal thoughts. No homicidal thoughts. SKIN: No rash. No lesions. No wounds. ENDOCRINE: No unexplained weight loss. No weight gain. HEMATOLOGIC/LYMPHATIC: No anemia. No purpura. No petechiae. No prolonged or excessive bleeding. No palpable lymph nodes. PHYSICAL EXAMINATION: GENERAL: The patient is awake, alert but not oriented, lying/sitting in bed in no distress. VITAL SIGNS: Temperature 97.6 F, Pulse 74, Respiratory Rate 18, BP 141/81, Pulse Ox 96% HEENT: Head normocephalic, atraumatic. Eyes: Extraocular muscles are intact. Pupils are equal, round and reactive to light and accommodation. Ears: No lesions. Nose appeared normal. Throat: No exudate or erythema. NECK: Supple. No JVD, no carotid bruit. No lymphadenopathy or thyromegaly. LUNGS: Diminished breath sounds. Clear to auscultation. Percussion note normal. Chest symmetrical. HEART: S1, S2, no S3. No murmurs. No cyanosis or clubbing. No ascites. Pulses: Dorsalis pedis and posterior tibial pulses +1 to +2 both sides. ABDOMEN: Soft. Non-tender. Bowel sounds active. No CVA tenderness. No mass felt. EXTREMITIES: No edema. Full range of motion of all extremities, equal. NEUROLOGIC: No focal deficit. Cranial nerves II through XII are grossly intact. No headache. No double vision. SKIN: Not dry. Intact. Turgor-normal. LYMPHATIC: No palpable lymph nodes/no lymphedema. MUSCULOSKELETAL: Normal joints with no swelling. Muscle tone is normal. LAB REVIEW: 10/11/20 04:34 10/11/20 04:34 10/11/20 04:34: Sodium 136.4, Potassium 5.11 H, Chloride 100.0, Carbon Dioxide 27.9, Anion Gap 13.61, BUN 33.6 H, Creatinine 0.93, Estimated GFR (MDRD) 58.00, BUN/Creatinine Ratio 36.12, Glucose 136.6 H D, Calcium 9.30, Total Bilirubin 0.75, AST 24.9, ALT 19.8, Alkaline Phosphatase 74.1, Total Protein 6.35, Albumin 3.85, Globulin 2.50, Albumin/Globulin Ratio 1.54 10/11/20 04:34: WBC 10.97 H, RBC 4.39, Hgb 13.4, Hct 41.2, MCV 93.8, MCH 30.5, MCHC 32.5, RDW Coeff of Kenji 14.2, Plt Count 356, Immature Gran % (Auto) 0.4, Neut % (Auto) 60.2, Lymph % (Auto) 30.7, [place] % (Auto) 6.9, Eos % (Auto) 1.3, Baso % (Auto) 0.5, Neut # (Auto) 6.6, Lymph # (Auto) 3.4, [place] # (Auto) 0.8, Eos # (Auto) 0.1, Baso # (Auto) 0.1, Immature Gran # (Auto) 0.0 10/10/20 14:40: Urine Color Yellow, Urine Clarity Cloudy, Urine pH 6.0, Ur Specific [place] 1.020, Urine Protein 2+ H, Urine Glucose (UA) Negative, Urine Ketones Negative, Urine Blood Trace-lysed, Urine Nitrite Positive H, Urine Bilirubin Negative, Urine Urobilinogen 0.2, Ur Leukocyte Esterase 2+ H, Urine Microscopic RBC 5-10, Urine Microscopic WBC 50-100, Ur Squamous Epith Cells 20- 30, Urine Bacteria 4+, Urine Mucus 1+ 10/10/20 05:43: Hemoglobin A1c 7.85 H ASSESSMENT: Please see below. 1. Hypertension. 2. UTI. 3. Dementia with behavioral disturbances. 4. Hyperkalemia. PLAN: 1. Discontinue potassium. 2. NS @ 75 cc/hr, one bag. Plan and coordination of the patient's care discussed in the presence of Phlebotomist Supervisor/Instructor and nurse. CONDITION: Stable SCRIBED BY: BERNIE PENA Regional Education Coordinator scribed while in presence of service performed by Dr. Alcala/Nona Dunn APRN on 10/11/20 ([id number])
[2020-10-11] MEDS: ONGLYZA PO SCH (09:35)
[2020-10-11] MEDS: LIPITOR PO SCH (09:36)
[2020-10-11] MEDS: GLUCOPHAGE PO SCH ×2 (09:36→17:04)
[2020-10-11] MEDS: COZAAR PO SCH (09:37)
[2020-10-11] MEDS: NAMENDA PO SCH (09:37)
[2020-10-11] MEDS: ATIVAN PO SCH ×2 (09:37→20:41)
[2020-10-11] MEDS: TOPROL XL PO SCH ×2 (09:37→20:41)
[2020-10-11] MEDS: ROCEPHIN 1 GM/50 ML D5W 1 GM/50 ML BAG IV SCH (09:46)
[2020-10-11] MEDS: HUMULIN R SUBCUT PRN ×2 (11:03→20:52)
--- NOTE | 2020-10-11 14:55 | PN ---
DATE OF SERVICE: 10/09/20 - Admit Note SUBJECTIVE: 79-year-old white female was seen and examined in Room 111. The patient was hospitalized through the emergency room with uncontrolled hypertension. According to the son, the blood pressure that he took in the afternoon was more than 200 systolic and 110 diastolic. She was practically asymptomatic according to him. In the emergency room initial blood pressure was practically normal with systolic of 140; later on it was noted to be 190. The patient has dementia. She is alert but has dementia, labile hypertension for several years. Lately her blood pressure seems to be lower range, normal. She was taken off Norvasc. PHYSICAL EXAMINATION: Unremarkable. HEENT: Head normocephalic, atraumatic. Eyes: Extraocular muscles are intact. Pupils are equal, round and reactive to light and accommodation. Ears: No lesions. Nose appeared normal. Throat: No exudate or erythema. NECK: Supple. No JVD, no carotid bruit. No lymphadenopathy or thyromegaly. LUNGS: Clear to auscultation. Percussion note normal. Chest symmetrical. HEART: S1, S2, no S3. No murmurs. No cyanosis or clubbing. No ascites. Pulses: Dorsalis pedis and posterior tibial pulses +1 to +2 bilaterally. ABDOMEN: Soft. Nontender. Bowel sounds active. No CVA tenderness. No mass felt. EXTREMITIES: No edema. Full range of motion of all extremities, equal. NEUROLOGIC: No focal deficit. Cranial nerves II through XII are grossly intact. No headache. No double vision. SKIN: Not dry. Intact. Turgor - normal. LYMPHATIC: No palpable lymph nodes/no lymphedema. MUSCULOSKELETAL: Normal joints with no swelling. Muscle tone is normal. EKG sinus rhythm, LVH, no acute changes. ASSESSMENT: 1. Labile hypertension. PLAN: Start the patient on beta juliet in the morning and this may have to be added at night. Also, will give Vasotec 1.25 mg IV q.6 for systolic of 150. It is to be noted that if the patient is sleeping and if she is awakened, her blood pressure is definitely going to be more than 171/80, 190 even and was explained that once the blood pressure is within a range to leave her alone. Norvasc could be given at the time blood pressure is noted to be more than 150. TIME SPENT: More than 30 minutes. Plan and coordination of the patient's care discussed in the presence of nurse. MICHELLE
[2020-10-11] MEDS: ARICEPT PO SCH (20:41)
[2020-10-11] MEDS: NORVASC PO SCH (20:41)
[2020-10-12 04:58] LABS: BASOPHILS # (AUTO) 0.1 K/uL (0-0.2); BASOPHILS % (AUTO) 0.5 % (0.0-3.0); EOSINOPHILS # (AUTO) 0.3 K/ul (0.0-0.7); EOSINOPHILS % (AUTO) 2.7 % (0.0-7.0); HEMATOCRIT 38.6 % (37.0-47.0); HEMOGLOBIN 12.7 g/dl (12.0-16.0); IMMATURE GRANULOCYTE % (AUTO) 0.3 % (0.0-5.0); LYMPHOCYTES # (AUTO) 3.4 K/uL (0.60-3.4); LYMPHOCYTES % (AUTO) 29.4 (10.0-50.0); MEAN CORPUSCULAR HEMOGLOBIN 30.7 pg (27.0-31.0); MEAN CORPUSCULAR HGB CONC 32.9 (31.8-35.4); MEAN CORPUSCULAR VOLUME 93.2 fl (81.0-99.0); MONOCYTES # (AUTO) 0.9 K/uL (0.4-2.0); MONOCYTES % (AUTO) 7.6 (0-10); NEUTROPHILS # (AUTO) 6.9 K/ul (2.0-6.9); NEUTROPHILS % (AUTO) 59.5 % (42.2-75.2); PLATELET COUNT 365 10^3/uL (140-440); RED BLOOD COUNT 4.14 10^6/ul (4.20-5.40); WHITE BLOOD COUNT 11.61 K/ul (4.6-10.2)
[2020-10-12 05:06] LABS: ALANINE AMINOTRANSFERASE 21.9 U/L (0-35); ALBUMIN 3.76 g/dL (3.5-5.0); ALKALINE PHOSPHATASE 71.8 U/L (53-141); ASPARTATE AMINO TRANSFERASE 32.7 U/L (14-36); BILIRUBIN,TOTAL 0.66 mg/dL (0.2-1.3); BLOOD UREA NITROGEN 33.8 mg/dL (7-17); CALCIUM 9.1 mg/dL (8.4-10.2); CHLORIDE 101.1 mmol/L (98-107); CREATININE 0.77 mg/dL (0.60-1.30); GLUCOSE 128.1 mg/dL (74-106); POTASSIUM 3.55 mmol/L (3.5-5.1); SODIUM 137.8 mmol/L (134.5-145); TOTAL PROTEIN 6.3 g/dL (6.3-8.2)
[2020-10-12] MEDS: SYNTHROID PO SCH (05:36)
[2020-10-12] MEDS: ROCEPHIN 1 GM/50 ML D5W 1 GM/50 ML BAG IV SCH (08:40)
[2020-10-12] MEDS: GLUCOPHAGE PO SCH ×2 (08:54→17:24)
[2020-10-12] MEDS: ONGLYZA PO SCH (08:54)
[2020-10-12] MEDS: LIPITOR PO SCH (08:54)
[2020-10-12] MEDS: TOPROL XL PO SCH ×2 (08:55→20:24)
[2020-10-12] MEDS: COZAAR PO SCH (08:55)
[2020-10-12] MEDS: NAMENDA PO SCH (08:55)
[2020-10-12] MEDS: ATIVAN PO SCH ×2 (08:55→20:24)
--- NOTE | 2020-10-12 11:06 | HP ---
DATE OF SERVICE: 10/09/20 HISTORY OF PRESENT ILLNESS: This is an 79-year-old white female who presents to the emergency room with her son. She has advanced Alzheimer's disease. The son states she has had an elevated glucose and uncontrolled blood pressure. PAST MEDICAL HISTORY: Advanced dementia Chronic anemia Generalized weakness Recurrent UTI Diabetes mellitus type 2 History of CVA History of falls History of paroxysmal atrial fibrillation with RVR, one episode which has resolved Hypertension Dyslipidemia Hypothyroidism History of upper GI bleed in December of 2009 CVA in 2001 History of left hip fracture in 2019 PAST SURGICAL HISTORY: Appendectomy Tubal ligation Left hip repair in 07/14 REVIEW OF SYSTEMS: CONSTITUTIONAL: Weakness. Lethargy. No night sweats. No fatigue or malaise. No fever or chills. HEENT: Eyes: No visual changes. No eye pain. No eye discharge. ENT: No runny nose. No epistaxis. No sinus pain. No sore throat. No odynophagia. No ear pain. No congestion. RESPIRATORY: No cough, no congestion. No hemoptysis. No shortness of breath. CARDIOVASCULAR: No angina symptoms. No CHF symptoms. No atypical chest pain for CAD. No palpitations. No PND. No orthopnea. GASTROINTESTINAL: No abdominal pain. No nausea or vomiting. No diarrhea or constipation. No hematemesis. No hematochezia. GENITOURINARY: No urgency. No frequency. No dysuria. No hematuria. No obstructive symptoms. No discharge. No pain. No significant abnormal bleeding. MUSCULOSKELETAL: No musculoskeletal pain. No joint swelling. No arthritis. NEUROLOGICAL: Positive for confusion. No headache. No neck pain. No syncope. No seizures. No dizziness. PSYCHIATRIC: Not anxious. No depression. No suicidal thoughts. No homicidal thoughts. SKIN: No rash. No lesions. No wounds. ENDOCRINE: No unexplained weight loss. No weight gain. HEMATOLOGIC/LYMPHATIC: No anemia. No purpura. No petechiae. No prolonged or excessive bleeding. No palpable lymph nodes. PERSONAL/FAMILY/SOCIAL HISTORY: She is . Nonsmoker. No alcohol or illcit drug use. She requires 24 hour care. Her son stays with her. MEDICATIONS: Atorvastatin 40 mg p.o. daily Metoprolol 50 mg p.o. daily Memantine 10 mg p.o. daily Donepezil (Aricept) 10 mg p.o. bedtime Saxagliptin (Onglyza) 5 mg p.o. daily Lorazepam (Ativan) 0.5 mg p.o. b.i.d. Levothyroxine (Synthroid) 100 mcg p.o. q.d.a.c. Potassium Chloride 20 mEq p.o. b.i.d. Metformin 500 mg p.o. b.i.d. with meal Metoprolol Succinate 25 mg p.o. bedtime Amlodipine (Norvasc) 5 mg p.o. bedtime ALLERGIES: CIPROFLOXACIN PHYSICAL EXAMINATION: VITAL SIGNS: Temperature 98.5, heart rate 93, respirations 20, blood pressure 150/81, pulse ox 94%. Alert, not oriented to person, place or time. HEENT: Head normocephalic, atraumatic. Eyes: Extraocular muscles are intact. Pupils are equal, round and reactive to light and accommodation. Ears: No lesions. Nose appeared normal. Throat: No exudate or erythema. NECK: Supple. No JVD, no carotid bruit. No lymphadenopathy or thyromegaly. LUNGS: Diminished breath sounds. Clear to auscultation. Percussion note normal. Chest symmetrical. HEART: S1, S2, no S3. No murmur. No cyanosis or clubbing. No ascites. Pulses: Dorsalis pedis and posterior tibial pulses +1 to +2 bilaterally. ABDOMEN: Soft. Nontender. Bowel sounds active. No CVA tenderness. No mass felt. EXTREMITIES: No leg edema. Full range of motion of all extremities, equal. NEUROLOGIC: No focal deficit. Cranial nerves II through XII are grossly intact. No headache, no double vision or headache. SKIN: Not dry. Intact. Turgor - normal. LYMPHATIC: No palpable lymph nodes/no lymphedema. MUSCULOSKELETAL: Normal joints with no swelling. Muscle tone is normal. White count 10.97, hemoglobin 12.9, hematocrit 39.6, platelets 326. Sodium 136, potassium 5.02 with BUN 27, creatinine 0.92, glucose 260. ASSESSMENT: 1. Hypertension. 2. Diabetes mellitus type 2. 3. Increased confusion. 4. Urinary tract infection. PLAN: 1. We will admit. 2. Routine telemetry orders. 3. CBC, CMP daily. 4. Rocephin 1 gm IV daily. 5. UA with urine culture. 6. Chest x-ray. 7. Continue home medications. 8. T4, TSH. 9. A1C. 10. Regular diet. 11. Fall precautions. 12. Will follow closely. TIME SPENT: More than 70 minutes. MICHELLE
[2020-10-12] MEDS: HUMULIN R SUBCUT PRN ×2 (12:01→20:22)
--- NOTE | 2020-10-12 14:40 | PN ---
DATE OF SERVICE: 10/10/20 SUBJECTIVE: 79-year-old white female hospitalized with uncontrolled hypertension with history of type 2 diabetes. The patient is mostly sleepy. The son is present in the room. REVIEW OF SYSTEMS: CONSTITUTIONAL: No night sweats. No fatigue, malaise, lethargy. No fever or chills. HEENT: Eyes: No visual changes. No eye pain. No eye discharge. ENT: No runny nose. No epistaxis. No sinus pain. No sore throat. No odynophagia. No congestion. RESPIRATORY: No cough, no congestion. No hemoptysis. No shortness of breath. CARDIOVASCULAR: No angina symptoms. No CHF symptoms. No atypical chest pain for CAD. No palpitations. No PND. No orthopnea. GASTROINTESTINAL: No abdominal pain. No nausea or vomiting. No diarrhea or constipation. No hematemesis. No hematochezia. GENITOURINARY: No urgency. No frequency. No dysuria. No hematuria. No obstructive symptoms. No discharge. No pain. No significant abnormal bleeding. MUSCULOSKELETAL: No musculoskeletal pain; no joint swelling. NEUROLOGICAL: No headache. No neck pain. No syncope. No seizures. No dizziness. PSYCHIATRIC: Not anxious. No depression. No suicidal thoughts. No homicidal thoughts. SKIN: No rash. No lesions. No wounds. ENDOCRINE: No unexplained weight loss. No weight gain. HEMATOLOGIC/LYMPHATIC: No anemia. No purpura. No petechiae. No prolonged or excessive bleeding. No palpable lymph nodes. PHYSICAL EXAMINATION: VITAL SIGNS: Temperature 97.5, pulse 75, respiratory rate 16, blood pressure 135/83, pulse ox 96%. HEENT: Head normocephalic, atraumatic. Eyes: Extraocular muscles are intact. Pupils are equal, round and reactive to light and accommodation. Ears: No lesions. Nose appeared normal. Throat: No exudate or erythema. NECK: Supple. No JVD, no carotid bruit. No lymphadenopathy or thyromegaly. LUNGS: Decreased lungs but Clear to auscultation. Percussion note normal. Chest symmetrical. HEART: S1, S2, no S3. No murmurs. No cyanosis or clubbing. No ascites. Pulses: Dorsalis pedis and posterior tibial pulses +1 to +2 bilaterally. ABDOMEN: Soft. Nontender. Bowel sounds active. No CVA tenderness. No mass felt. EXTREMITIES: No edema. Full range of motion of all extremities, equal. NEUROLOGIC: No focal deficit. Cranial nerves II through XII are grossly intact. No headache. No double vision. SKIN: Not dry. Intact. Turgor - normal. LYMPHATIC: No palpable lymph nodes/no lymphedema. MUSCULOSKELETAL: Normal joints with no swelling. Muscle tone is normal. LABS: Hemoglobin 13.1, hematocrit 39.8, WBC 10,000, normal differential. Creatinine 0.7, BUN 27, potassium 4.5. ASSESSMENT: 1. Hypertension seems to be under control. 2. Diabetes mellitus seems to be under control. In fact, sugars seem to be running low. Will do A1C. PLAN: 1. Metoprolol 50 mg in the morning and 25 at night. 2. Amlodipine 5 mg at night. 3. Continue the rest of the medications like Losartan. CONDITION: Stable. Of note, late in the afternoon it was reported that her UA was absolutely abnormal. There are no symptoms of UTI. Will start the patient on Rocephin 1 gm q.24 per culture and sensitivity. TIME SPENT: More than 30 minutes. Plan and coordination of the patient's care discussed in the presence of nurse. MICHELLE
[2020-10-12] MEDS: NORVASC PO SCH (20:24)
[2020-10-12] MEDS: ARICEPT PO SCH (20:24)
[2020-10-13] MEDS: SYNTHROID PO SCH (05:31)
[2020-10-13 07:00] LABS: BASOPHILS # (AUTO) 0.1 K/uL (0-0.2); BASOPHILS % (AUTO) 0.5 % (0.0-3.0); EOSINOPHILS # (AUTO) 0.1 K/ul (0.0-0.7); EOSINOPHILS % (AUTO) 1.1 % (0.0-7.0); HEMATOCRIT 37.5 % (37.0-47.0); HEMOGLOBIN 12.5 g/dl (12.0-16.0); IMMATURE GRANULOCYTE % (AUTO) 0.2 % (0.0-5.0); LYMPHOCYTES # (AUTO) 2.8 K/uL (0.60-3.4); LYMPHOCYTES % (AUTO) 28.5 (10.0-50.0); MEAN CORPUSCULAR HEMOGLOBIN 31.2 pg (27.0-31.0); MEAN CORPUSCULAR HGB CONC 33.3 (31.8-35.4); MEAN CORPUSCULAR VOLUME 93.5 fl (81.0-99.0); MONOCYTES # (AUTO) 0.7 K/uL (0.4-2.0); MONOCYTES % (AUTO) 6.9 (0-10); NEUTROPHILS # (AUTO) 6.2 K/ul (2.0-6.9); NEUTROPHILS % (AUTO) 62.8 % (42.2-75.2); PLATELET COUNT 349 10^3/uL (140-440); RDW COEFFICIENT OF VARIATION 13.8 % (11.6-14.8); RED BLOOD COUNT 4.01 10^6/ul (4.20-5.40); WHITE BLOOD COUNT 9.83 K/ul (4.6-10.2)
[2020-10-13 07:12] LABS: ALANINE AMINOTRANSFERASE 20.6 U/L (0-35); ALBUMIN 3.65 g/dL (3.5-5.0); ALKALINE PHOSPHATASE 67.2 U/L (53-141); ASPARTATE AMINO TRANSFERASE 27.2 U/L (14-36); BILIRUBIN,TOTAL 0.62 mg/dL (0.2-1.3); BLOOD UREA NITROGEN 38.2 mg/dL (7-17); CALCIUM 8.87 mg/dL (8.4-10.2); CARBON DIOXIDE 25.3 mmol/L (22-30.0); CHLORIDE 100.9 mmol/L (98-107); CREATININE 0.97 mg/dL (0.60-1.30); GLUCOSE 145.2 mg/dL (74-106); POTASSIUM 3.98 mmol/L (3.5-5.1); TOTAL PROTEIN 6.03 g/dL (6.3-8.2)
[2020-10-13] MEDS: ONGLYZA PO SCH (09:21)
[2020-10-13] MEDS: LIPITOR PO SCH (09:21)
[2020-10-13] MEDS: COZAAR PO SCH (09:21)
[2020-10-13] MEDS: ATIVAN PO SCH ×2 (09:21→20:24)
[2020-10-13] MEDS: NAMENDA PO SCH (09:21)
[2020-10-13] MEDS: GLUCOPHAGE PO SCH ×2 (09:22→16:43)
[2020-10-13] MEDS: ROCEPHIN 1 GM/50 ML D5W 1 GM/50 ML BAG IV SCH (09:22)
[2020-10-13] MEDS: TOPROL XL PO SCH ×2 (09:22→20:24)
[2020-10-13] MEDS: HUMULIN R SUBCUT PRN (11:28)
[2020-10-13] MEDS: K-DUR PO SCH (16:43)
[2020-10-13] MEDS: NORVASC PO SCH (20:24)
[2020-10-13] MEDS: ARICEPT PO SCH (20:24)
[2020-10-14 05:19] LABS: BASOPHILS # (AUTO) 0.1 K/uL (0-0.2); BASOPHILS % (AUTO) 0.5 % (0.0-3.0); EOSINOPHILS # (AUTO) 0.2 K/ul (0.0-0.7); EOSINOPHILS % (AUTO) 2.1 % (0.0-7.0); HEMATOCRIT 36.9 % (37.0-47.0); HEMOGLOBIN 11.9 g/dl (12.0-16.0); IMMATURE GRANULOCYTE % (AUTO) 0.2 % (0.0-5.0); LYMPHOCYTES # (AUTO) 3.6 K/uL (0.60-3.4); LYMPHOCYTES % (AUTO) 37.9 (10.0-50.0); MEAN CORPUSCULAR HEMOGLOBIN 30.4 pg (27.0-31.0); MEAN CORPUSCULAR HGB CONC 32.2 (31.8-35.4); MEAN CORPUSCULAR VOLUME 94.1 fl (81.0-99.0); MONOCYTES # (AUTO) 0.7 K/uL (0.4-2.0); MONOCYTES % (AUTO) 7.3 (0-10); NEUTROPHILS # (AUTO) 4.9 K/ul (2.0-6.9); PLATELET COUNT 343 10^3/uL (140-440); RED BLOOD COUNT 3.92 10^6/ul (4.20-5.40); WHITE BLOOD COUNT 9.49 K/ul (4.6-10.2)
[2020-10-14 05:35] LABS: ALANINE AMINOTRANSFERASE 19.3 U/L (0-35); ALBUMIN 3.61 g/dL (3.5-5.0); ALKALINE PHOSPHATASE 67.8 U/L (53-141); ASPARTATE AMINO TRANSFERASE 28.2 U/L (14-36); BILIRUBIN,TOTAL 0.6 mg/dL (0.2-1.3); BLOOD UREA NITROGEN 36.4 mg/dL (7-17); CALCIUM 8.73 mg/dL (8.4-10.2); CARBON DIOXIDE 27.3 mmol/L (22-30.0); CREATININE 0.97 mg/dL (0.60-1.30); GLUCOSE 153.3 mg/dL (74-106); POTASSIUM 4.22 mmol/L (3.5-5.1); SODIUM 136.7 mmol/L (134.5-145)
[2020-10-14] MEDS: SYNTHROID PO SCH (05:35)
[2020-10-14] MEDS: ROCEPHIN 1 GM/50 ML D5W 1 GM/50 ML BAG IV SCH (08:32)
[2020-10-14] MEDS: COZAAR PO SCH (08:34)
[2020-10-14] MEDS: ATIVAN PO SCH ×2 (08:35→21:01)
[2020-10-14] MEDS: ONGLYZA PO SCH (08:35)
[2020-10-14] MEDS: NAMENDA PO SCH (08:35)
[2020-10-14] MEDS: LIPITOR PO SCH (08:35)
[2020-10-14] MEDS: K-DUR PO SCH ×2 (08:35→17:00)
[2020-10-14] MEDS: GLUCOPHAGE PO SCH ×2 (08:35→17:00)
[2020-10-14] MEDS: TOPROL XL PO SCH ×2 (08:35→21:01)
[2020-10-14] MEDS: ARICEPT PO SCH (21:01)
[2020-10-14] MEDS: CEFTIN PO SCH (21:02)
[2020-10-14] MEDS: HUMULIN R SUBCUT PRN (21:02)
[2020-10-14] MEDS: NORVASC PO SCH (21:02)
--- NOTE | 2020-10-14 21:46 | DI ---
ADDENDUM: EXAM: AP pelvis and two-view bilateral hips.
[2020-10-15 04:30] LABS: BASOPHILS # (AUTO) 0.1 K/uL (0-0.2); BASOPHILS % (AUTO) 0.5 % (0.0-3.0); EOSINOPHILS # (AUTO) 0.3 K/ul (0.0-0.7); EOSINOPHILS % (AUTO) 2.8 % (0.0-7.0); HEMATOCRIT 35.2 % (37.0-47.0); HEMOGLOBIN 11.5 g/dl (12.0-16.0); IMMATURE GRANULOCYTE % (AUTO) 0.3 % (0.0-5.0); LYMPHOCYTES # (AUTO) 3.3 K/uL (0.60-3.4); LYMPHOCYTES % (AUTO) 29.4 (10.0-50.0); MEAN CORPUSCULAR HEMOGLOBIN 30.6 pg (27.0-31.0); MEAN CORPUSCULAR HGB CONC 32.7 (31.8-35.4); MEAN CORPUSCULAR VOLUME 93.6 fl (81.0-99.0); MONOCYTES % (AUTO) 8.6 (0-10); NEUTROPHILS # (AUTO) 6.6 K/ul (2.0-6.9); NEUTROPHILS % (AUTO) 58.4 % (42.2-75.2); PLATELET COUNT 340 10^3/uL (140-440); RDW COEFFICIENT OF VARIATION 13.9 % (11.6-14.8); RED BLOOD COUNT 3.76 10^6/ul (4.20-5.40); WHITE BLOOD COUNT 11.25 K/ul (4.6-10.2)
[2020-10-15 04:42] LABS: ALANINE AMINOTRANSFERASE 19.2 U/L (0-35); ALBUMIN 3.32 g/dL (3.5-5.0); ALKALINE PHOSPHATASE 59.7 U/L (53-141); ASPARTATE AMINO TRANSFERASE 28.2 U/L (14-36); BILIRUBIN,TOTAL 0.47 mg/dL (0.2-1.3); CALCIUM 8.46 mg/dL (8.4-10.2); CARBON DIOXIDE 21.4 mmol/L (22-30.0); CHLORIDE 103.4 mmol/L (98-107); CREATININE 0.79 mg/dL (0.60-1.30); GLUCOSE 159.6 mg/dL (74-106); POTASSIUM 4.55 mmol/L (3.5-5.1); SODIUM 132.4 mmol/L (134.5-145); TOTAL PROTEIN 5.6 g/dL (6.3-8.2)
[2020-10-15] MEDS: SYNTHROID PO SCH (05:32)
[2020-10-15 05:43] VITALS: BP 128/62; TEMP 98
[2020-10-15] MEDS: HUMULIN R SUBCUT PRN (05:49)
[2020-10-15] MEDS ORDERED: MICRO-K CAP PO SCH (08:30)
--- NOTE | 2020-10-15 08:37 | PCM.PROG ---
Attending Provider: ATTENDING PROVIDER: Dr. FALGUNI ALCALA This patient is seen with Nona Dunn, Nurse Practitioner. DATE OF SERVICE: 10/15/20 SUBJECTIVE: This 79 year old /WHITE F was hospitalized 10/09/20. The patient is resting comfortably. The patient fell last night. Pelvic x-ray was normal. Not exhibiting any signs of pain. She is alert but not oriented as usual. REVIEW OF SYSTEMS: CONSTITUTIONAL: No night sweats. No fatigue, malaise, lethargy. No fever or chills. Weakness. HEENT: Eyes: No visual changes. No eye pain. No eye discharge. ENT: No runny nose. No epistaxis. No sinus pain. No odynophagia. No congestion. RESPIRATORY: No cough, no congestion. No hemoptysis. No shortness of breath. CARDIOVASCULAR: No angina symptoms. No CHF symptoms. No atypical chest pain for CAD. No palpitations. No orthopnea.. GASTROINTESTINAL: No abdominal pain. No nausea or vomiting. No diarrhea or constipation. No hematemesis. No hematochezia. GENITOURINARY: No urgency. No frequency. No dysuria. No hematuria. No obstructive symptoms. No discharge. No pain. No significant abnormal bleeding. MUSCULOSKELETAL: No musculoskeletal pain; no joint swelling. NEUROLOGICAL: Awake, alert, confusion. No headache. No neck pain. No syncope. No seizures. No dizziness. PSYCHIATRIC: Not anxious. No depression. No suicidal thoughts. No homicidal thoughts. SKIN: No rash. No lesions. No wounds. ENDOCRINE: No unexplained weight loss. No weight gain. HEMATOLOGIC/LYMPHATIC: No anemia. No purpura. No petechiae. No prolonged or excessive bleeding. No palpable lymph nodes. PHYSICAL EXAMINATION: GENERAL: The patient is awake, alert and not oriented, lying in bed in no distress. VITAL SIGNS: Temperature 98.0 F, Pulse 67, Respiratory Rate 18, BP 128/62, Pulse Ox 95% HEENT: Head normocephalic, atraumatic. Eyes: Extraocular muscles are intact. Pupils are equal, round and reactive to light and accommodation. Ears: No lesions. Nose appeared normal. Throat: No exudate or erythema. NECK: Supple. No JVD, no carotid bruit. No lymphadenopathy or thyromegaly. LUNGS: Diminished breath sounds. Clear to auscultation. Percussion note normal. Chest symmetrical. HEART: S1, S2, no S3. No murmurs. No cyanosis or clubbing. No ascites. Pulses: Dorsalis pedis and posterior tibial pulses +1 to +2 both sides. ABDOMEN: Soft. Non-tender. Bowel sounds active. No CVA tenderness. No mass felt. EXTREMITIES: No edema. Full range of motion of all extremities, equal. NEUROLOGIC: No focal deficit. Cranial nerves II through XII are grossly intact. No headache. No double vision. SKIN: Not dry. Intact. Turgor-normal. LYMPHATIC: No palpable lymph nodes/no lymphedema. MUSCULOSKELETAL: Normal joints with no swelling. Muscle tone is normal. LAB REVIEW: 10/15/20 04:25 10/15/20 04:25 10/15/20 04:25: Sodium 132.4 L, Potassium 4.55, Chloride 103.4, Carbon Dioxide 21.4 L, Anion Gap 12.15, BUN 32.0 H, Creatinine 0.79, Estimated GFR (MDRD) 70.00, BUN/Creatinine Ratio 40.50, Glucose 159.6 H, Calcium 8.46, Total Bilirubin 0.47, AST 28.2, ALT 19.2, Alkaline Phosphatase 59.7, Total Protein 5.60 L, Albumin 3.32 L, Globulin 2.28, Albumin/Globulin Ratio 1.45 10/15/20 04:25: WBC 11.25 H, RBC 3.76 L, Hgb 11.5 L, Hct 35.2 L, MCV 93.6, MCH 30.6, MCHC 32.7, RDW Coeff of Kenji 13.9, Plt Count 340, Immature Gran % (Auto) 0.3, Neut % (Auto) 58.4, Lymph % (Auto) 29.4, [place] % (Auto) 8.6, Eos % (Auto) 2.8, Baso % (Auto) 0.5, Neut # (Auto) 6.6, Lymph # (Auto) 3.3, [place] # (Auto) 1.0, Eos # (Auto) 0.3, Baso # (Auto) 0.1, Immature Gran # (Auto) 0.0 ASSESSMENT: Please see below. 1. Hypertension, controlled 2. Diabetes Mellitus type 2, controlled 3. Dementia with behavioral disturbances 4. Generalized weakness. PLAN: 1. Discharge home today 2. Continue Potassium 10meq 3. Ceftin 500mg BID for 5 days 4. Will continue Metformin 500mg BID 5. Prognosis is poor given advancement of Dementia. 6. Will discuss with son the risks associated with hypoglycemia. Plan and coordination of the patient's care discussed in the presence of Dairy Bacteriologist and nurse. SCRIBED BY: Mouna THURSTONist scribed while in presence of service performed by Dr. Alcala/Nona Dunn APRN on 10/15/20 ([id number])
[2020-10-15] MEDS: NAMENDA PO SCH (09:03)
[2020-10-15] MEDS: COZAAR PO SCH (09:03)
[2020-10-15] MEDS: ONGLYZA PO SCH (09:03)
[2020-10-15] MEDS: LIPITOR PO SCH (09:03)
[2020-10-15] MEDS: TOPROL XL PO SCH (09:03)
[2020-10-15] MEDS: CEFTIN PO SCH (09:03)
[2020-10-15] MEDS: ATIVAN PO SCH (09:04)
[2020-10-15] MEDS: GLUCOPHAGE PO SCH (09:04)
--- NOTE | 2020-10-15 09:52 | PN ---
DATE OF SERVICE: 10/11/2020 SUBJECTIVE: The patient was seen and examined with the Nurse Practitioner. The patient is still woozy. UTI is being treated with IV antibiotics, cultures sensitivity is pending. Blood pressure seems to be under control. Cardiovascular status is stable. The patient is DNR. TIME SPENT: More than 30 minutes. Plan and coordination of the patient's care discussed in the presence of nurse. MICHELLE
--- NOTE | 2020-10-15 10:31 | PN ---
DATE OF SERVICE: 10/13/2020 SUBJECTIVE: 79 year old white female hospitalized with uncontrolled hypertension, diabetes mellitus and dementia. This patient's condition has improved. Her blood pressure seems to be doing better. Systolic blood pressure ranges from anywhere from 130 to 150 with normal diastolic pressure. REVIEW OF SYSTEMS: CONSTITUTIONAL: No night sweats. Sleepy, drowsy and disoriented. No fever or chills. HEENT: Eyes: No visual changes. No eye pain. No eye discharge. ENT: No runny nose. No epistaxis. No sinus pain. No sore throat. No odynophagia. No congestion. RESPIRATORY: No cough, no congestion. No hemoptysis. No shortness of breath. CARDIOVASCULAR: No angina symptoms. No CHF symptoms. No atypical chest pain for CAD. No palpitations. No PND. No orthopnea. GASTROINTESTINAL: No abdominal pain. No nausea or vomiting. No diarrhea or constipation. No hematemesis. No hematochezia. GENITOURINARY: No urgency. No frequency. No dysuria. No hematuria. No obstructive symptoms. No discharge. No pain. No significant abnormal bleeding. MUSCULOSKELETAL: No musculoskeletal pain; no joint swelling. NEUROLOGICAL: No headache. No neck pain. No syncope. No seizures. No dizziness. PSYCHIATRIC: Not anxious. No depression. No suicidal thoughts. No homicidal thoughts. SKIN: No rash. No lesions. No wounds. ENDOCRINE: No unexplained weight loss. No weight gain. HEMATOLOGIC/LYMPHATIC: No anemia. No purpura. No petechiae. No prolonged or excessive bleeding. No palpable lymph nodes. PHYSICAL EXAMINATION: VITAL SIGNS: Temperature 97.2, pulse 70, respiratory rate 16, blood pressure 140/70 and pulse ox 95% HEENT: Head normocephalic, atraumatic. Eyes: Extraocular muscles are intact. Pupils are equal, round and reactive to light and accommodation. Ears: No lesions. Nose appeared normal. Throat: No exudate or erythema. NECK: Supple. No JVD, no carotid bruit. No lymphadenopathy or thyromegaly. LUNGS: Decreased breath sounds but clear to auscultation. Percussion note normal. Chest symmetrical. HEART: S1, S2, no S3. No murmurs. No cyanosis or clubbing. No ascites. Pulses: Dorsalis pedis and posterior tibial pulses +1 to +2 bilaterally. ABDOMEN: Soft. Nontender. Bowel sounds active. No CVA tenderness. No mass felt. EXTREMITIES: No edema. Full range of motion of all extremities, equal. NEUROLOGIC: No focal deficit. Cranial nerves II through XII are grossly intact. No headache. No double vision. SKIN: Not dry. Intact. Turgor - normal. LYMPHATIC: No palpable lymph nodes/no lymphedema. MUSCULOSKELETAL: Normal joints with no swelling. Muscle tone is normal. LABS: hgb 12.7, hct 38, WBC 11,000 normal differential, creatinine 0.7, BUN 33, potassium 3.5 ASSESSMENT: 1. Uncontrolled hypertension seems to be controlled well 2. Urinary tract infection 3. Diabetes Mellitus 4. Dementia TIME SPENT: More than 30 minutes. Plan and coordination of the patient's care discussed in the presence of nurse. MICHELLE
--- NOTE | 2020-10-15 13:47 | PN ---
DATE OF SERVICE: 10/12/20 SUBJECTIVE: 79-year-old white female hospitalized with uncontrolled hypertension with systolic blood pressure more than 220 and also has dementia which seems to have worsened. The patient is somewhat more alert but still sleepy most of the time. She keeps her eyes closed and mumbles. REVIEW OF SYSTEMS: CONSTITUTIONAL: No night sweats. No fatigue, malaise, lethargy. No fever or chills. HEENT: Eyes: No visual changes. No eye pain. No eye discharge. ENT: No runny nose. No epistaxis. No sinus pain. No sore throat. No odynophagia. No congestion. RESPIRATORY: No cough, no congestion. No hemoptysis. No shortness of breath. CARDIOVASCULAR: No angina symptoms. No CHF symptoms. No atypical chest pain for CAD. No palpitations. No PND. No orthopnea. GASTROINTESTINAL: No abdominal pain. No nausea or vomiting. No diarrhea or constipation. No hematemesis. No hematochezia. GENITOURINARY: No urgency. No frequency. No dysuria. No hematuria. No obstructive symptoms. No discharge. No pain. No significant abnormal bleeding. MUSCULOSKELETAL: No musculoskeletal pain; no joint swelling. NEUROLOGICAL: No headache. No neck pain. No syncope. No seizures. No dizziness. PSYCHIATRIC: Not anxious. No depression. No suicidal thoughts. No homicidal thoughts. SKIN: No rash. No lesions. No wounds. ENDOCRINE: No unexplained weight loss. No weight gain. HEMATOLOGIC/LYMPHATIC: No anemia. No purpura. No petechiae. No prolonged or excessive bleeding. No palpable lymph nodes. PHYSICAL EXAMINATION: VITAL SIGNS: Temperature 97, pulse 75, respiratory rate 16, blood pressure 132/82, pulse ox 94%. HEENT: Head normocephalic, atraumatic. Eyes: Extraocular muscles are intact. Pupils are equal, round and reactive to light and accommodation. Ears: No lesions. Nose appeared normal. Throat: No exudate or erythema. NECK: Supple. No JVD, no carotid bruit. No lymphadenopathy or thyromegaly. LUNGS: Decreased breath sounds but clear to auscultation. Percussion note normal. Chest symmetrical. HEART: S1, S2, no S3. No murmurs. No cyanosis or clubbing. No ascites. Pulses: Dorsalis pedis and posterior tibial pulses +1 to +2 bilaterally. ABDOMEN: Soft. Nontender. Bowel sounds active. No CVA tenderness. No mass felt. EXTREMITIES: No edema. Full range of motion of all extremities, equal. NEUROLOGIC: No focal deficit. Cranial nerves II through XII are grossly intact. No headache. No double vision. SKIN: Not dry. Intact. Turgor - normal. LYMPHATIC: No palpable lymph nodes/no lymphedema. MUSCULOSKELETAL: Normal joints with no swelling. Muscle tone is normal. LABS: Hemoglobin 12.7, hematocrit 38, WBC 11,000, normal differential. Creatinine 0.7, BUN 30, potassium 3.6. ASSESSMENT: 1. Uncontrolled hypertension seems to be under control, in acceptable range. 2. Worsening of dementia with mostly the patient in the bed laying around. The patient's son present in the room most of the day. PLAN: 1. Continue sliding scale with coverage. 2. Continue to monitor hypertension. 3. The patient is being treated with Rocephin for urinary tract infection. She is afebrile, seems to be doing well. 3. The patient is going to continue to be in observation as Medicare Advantage insurance is so critical about having regular admission. They would rather have the patient on observation and be treated for 15 days rather than having two days hospitalization. TIME SPENT: More than 30 minutes. Plan and coordination of the patient's care discussed in the presence of nurse. MICHELLE
--- NOTE | 2020-10-15 13:51 | CM.DICTOOL ---
ADMISSION: 10/09/20 19:12 DISCHARGE: OCTOBER 15, 2020 DATE OF SERVICE: 10/15/20 FINAL DIAGNOSIS HYPERTENSION DIABETES MELLITUS TYPE 2- 10/10/20 A1C = 7.85 INCREASED CONFUSION URINARY TRACT INFECTION - E- COLI DEMENTIA WITH BEHAVIOR DISTURBANCES GENERALIZED WEAKNESS HX: ADVANCED DEMENTIA CHRONIC ANEMIA GENERALIZED WEAKNESS RECURRENT UTI DIABETES MELLITUS TYPE 2 CVA FALLS PAROXYSMAL A-FIB WITH RVR - ONE EPISODE WHICH HAS RESOLVED HYPERTENSION DYSLIPIDEMIA HYPOTHYROIDISM UPPER GI BLEED, 01/01 CVA, 2001 LT HIP FRACTURE - 2019 SURGICAL HISTORY: APPENDECTOMY TUBAL LIGATION, 1970s LT HIP REPAIR LAST VITALS Temp Pulse Resp BP Pulse Ox 98.0 F 67 18 128/62 95 10/15/20 05:42 10/15/20 05:42 10/15/20 05:42 10/15/20 05:42 10/15/20 05:42 TAKE THESE MEDICATIONS AT HOME Amlodipine Besylate (Amlodipine Besylate 5 Mg Tablet) 5 mg PO BEDTIME BREN -- (NEW) Last Admin: 10/14/20 21:02 Dose: 5 mg Atorvastatin Calcium (Atorvastatin Calcium 20 Mg Tablet) 40 mg PO DAILY [facility] Last Admin: 10/15/20 09:03 Dose: 40 mg Cefuroxime Axetil (Cefuroxime Axetil 500 Mg Tablet) 500 mg PO Q12HR BREN FOR 5 MORE DAYS -- (NEW) Last Admin: 10/15/20 09:03 Dose: 250 mg Donepezil HCl (Donepezil Hcl 10 Mg Tablet) 10 mg PO BEDTIME BREN Last Admin: 10/14/20 21:01 Dose: 10 mg Levothyroxine Sodium (Levothyroxine Sodium 100 Mcg Tablet) 100 mcg PO QDAC [facility] Last Admin: 10/15/20 05:32 Dose: 100 mcg Lorazepam (Lorazepam 0.5 Mg Tablet) 0.5 mg PO BID [facility] Last Admin: 10/15/20 09:04 Dose: 0.5 mg Losartan Potassium (Losartan Potassium 25 Mg Tablet) 50 mg PO DAILY [facility] Last Admin: 10/15/20 09:03 Dose: 50 mg Memantine (Memantine Hcl 10 Mg Tablet) 10 mg PO DAILY [facility] Last Admin: 10/15/20 09:03 Dose: 10 mg Metformin HCl (Metformin Hcl 500 Mg Tablet) 500 mg PO BIDWM [facility] Last Admin: 10/15/20 09:04 Dose: 500 mg Metoprolol Succinate (Metoprolol Succinate 50 Mg Tab.Er.24h) 50 mg PO DAILY [facility] Last Admin: 10/15/20 09:03 Dose: 50 mg Metoprolol Succinate (Metoprolol Succinate 25 Mg Tab.Er.24h) 25 mg PO BEDTIME BREN -- ( CHANGED) Last Admin: 10/14/20 21:01 Dose: 25 mg Potassium Chloride (Potassium Chloride 10 Meq Capsule.Er) 10 meq PO DAILYWM BREN -- (CHANGED) Last Admin: 10/15/20 09:03 Dose: 10 meq Saxagliptin Hydrochloride (Saxagliptin Hcl 5 Mg Tablet) 5 mg PO DAILY [facility] Last Admin: 10/15/20 09:03 Dose: 5 mg CODE STATUS: DO NOT RESUSCITATE ALLERGIES ciprofloxacin [From Cipro] Adverse Reaction (Verified 10/09/20 15:21) DISCONTINUED MEDICATIONS 1). Potassium Chloride 20 meq PO BID [facility] 2). SEROQUEL 25 MG PO DAILY NEW PRESCRIPTIONS: NORVASC (Amlodipine Besylate) 5 mg PO BEDTIME BREN -- (NEW) CEFTIN (Cefuroxime Axetil) 500 mg PO Q12HR [facility] FOR 5 MORE DAYS -- (NEW) TOPROL (Metoprolol Succinate 25 Mg Tab.Er.24h) 25 mg PO BEDTIME BREN -- ( CHANGED) Potassium Chloride (10 Meq Capsule.Er) 10 meq PO DAILYWM BREN -- (CHANGED) SMOKING: N/A DISEASE SPECIFIC EDUCATION: DM HYPERTENSION FALL PRECAUTIONS COVID DECUBITUS ULCERS PREVENTION LAB REVIEW: 10/15/20 04:25 10/15/20 04:25 10/15/20 04:25: Sodium 132.4 L, Potassium 4.55, Chloride 103.4, Carbon Dioxide 21.4 L, Anion Gap 12.15, BUN 32.0 H, Creatinine 0.79, Estimated GFR (MDRD) 70.00, BUN/Creatinine Ratio 40.50, Glucose 159.6 H, Calcium 8.46, Total Bilirubin 0.47, AST 28.2, ALT 19.2, Alkaline Phosphatase 59.7, Total Protein 5.60 L, Albumin 3.32 L, Globulin 2.28, Albumin/Globulin Ratio 1.45 10/15/20 04:25: WBC 11.25 H, RBC 3.76 L, Hgb 11.5 L, Hct 35.2 L, MCV 93.6, MCH 30.6, MCHC 32.7, RDW Coeff of Kenji 13.9, Plt Count 340, Immature Gran % (Auto) 0.3, Neut % (Auto) 58.4, Lymph % (Auto) 29.4, [place] % (Auto) 8.6, Eos % (Auto) 2.8, Baso % (Auto) 0.5, Neut # (Auto) 6.6, Lymph # (Auto) 3.3, [place] # (Auto) 1.0, Eos # (Auto) 0.3, Baso # (Auto) 0.1, Immature Gran # (Auto) 0.0 PLAN: DISCHARGE TODAY: OCTOBER 15, 2020 HOME WITH SON PROVIDING 15/12 TOTAL CARE ACTIVITY: UP IN BEDSIDE CHAIR FOR MEALS AND PRN. ENCOURAGE TO BE UP IN THE CHAIR FALL PRECAUTIONS DIET: HEART HEALTHY, MAY HAVE ADDITIONAL FOODS AT TIMES BLOOD SUGARS: CHECK EVERY AM BEFORE BREAKFAST AND NEEDED. SHOULD BE KEEPING BLOOD SUGARS BETWEEN 60 TO 200. CONTACT MD IF ANY QUESTIONS. BLOOD PRESSURES: CHECK NEEDED. SYSTOLIC SHOULD BE NO HIGHER THAN 160 AND NO LOWER THAN 90. CALL MD IF ANY CONCERNS. MD FOLLOW UP: DR. ALCALA/ LUCINA BHAGAT APRN/ TAMIA CANDELARIO APRN IN THE OFFICE 10/24/2020 @ 1015 CODE STATUS: DO NOT RESUSCITATE MRS ANTHONY IS ALERT AND ORIENTED TO SELF ONLY. SHE REQUIRES PROMPTS AND TOTAL ASSIST OF ONE FOR ALL ADLs AND IADLs. NO RESPIRATORY PROBLEMS NOTED. SKIN WARM AND DRY AND INTACT. SHE CAN BE TRANSFERRED FROM BED TO CHAIR BY ASSIST OF ONE. SHE CAN BEAR WEIGHT WITH THE ASSIST. SHE IS INCONTINENT OF BOWEL AND BLADDER. URINE DOES NOT HAVE AN ODOR. LAST BM 10/15 X 2. SHE HAS BEEN HAVING SOFT UNFORMED STOOLS. SHE EATS BREAKFAST MEAL AT 100 % MAJORITY OF THE TIME. SHE EATS SMALL AMOUNTS OTHER TIMES OF THE DAY. HER SON STATED THIS IS TYPICAL FOR HER. HER SON WANTS TO CONTINUE TO TAKE CARE OF HER AT HOME. MD LUCINA MATHEW, OBIEE ARCHITECTBill CANDELARIO APRN
--- NOTE | 2020-10-15 14:49 | PN ---
DATE OF SERVICE: 10/14/20 SUBJECTIVE: 79-year-old white female hospitalized with uncontrolled hypertension. The patient's blood pressure is more or less well-controlled. She still has labile systolic hypertension, diabetes mellitus type 2 is tightly controlled. The patient also has urinary tract infection with E. coli. REVIEW OF SYSTEMS: CONSTITUTIONAL: No night sweats. No fatigue, malaise, lethargy. No fever or chills. HEENT: Eyes: No visual changes. No eye pain. No eye discharge. ENT: No runny nose. No epistaxis. No sinus pain. No sore throat. No odynophagia. No congestion. RESPIRATORY: No cough, no congestion. No hemoptysis. No shortness of breath. CARDIOVASCULAR: No angina symptoms. No CHF symptoms. No atypical chest pain for CAD. No palpitations. No PND. No orthopnea. GASTROINTESTINAL: No abdominal pain. No nausea or vomiting. No diarrhea or constipation. No hematemesis. No hematochezia. GENITOURINARY: No urgency. No frequency. No dysuria. No hematuria. No obstructive symptoms. No discharge. No pain. No significant abnormal bleeding. MUSCULOSKELETAL: No musculoskeletal pain; no joint swelling. NEUROLOGICAL: Still drowsy at times. Demented. No headache. No neck pain. No syncope. No seizures. No dizziness. PSYCHIATRIC: Not anxious. No depression. No suicidal thoughts. No homicidal thoughts. SKIN: No rash. No lesions. No wounds. ENDOCRINE: No unexplained weight loss. No weight gain. HEMATOLOGIC/LYMPHATIC: No anemia. No purpura. No petechiae. No prolonged or excessive bleeding. No palpable lymph nodes. PHYSICAL EXAMINATION: GENERAL: The patient is lying/sitting in bed in no distress. VITAL SIGNS: Temperature 98.6, pulse 64, respiratory rate 16, BP 140/75. Pulse ox 98% on room air. HEENT: Head normocephalic, atraumatic. Eyes: Extraocular muscles are intact. Pupils are equal, round and reactive to light and accommodation. Ears: No lesions. Nose appeared normal. Throat: No exudate or erythema. NECK: Supple. No JVD, no carotid bruit. No lymphadenopathy or thyromegaly. LUNGS: Clear to auscultation. Percussion note normal. Chest symmetrical. HEART: S1, S2, no S3. No murmurs. No cyanosis or clubbing. No ascites. Pulses: Dorsalis pedis and posterior tibial pulses +1 to +2 bilaterally. ABDOMEN: Soft. Nontender. Bowel sounds active. No CVA tenderness. No mass felt. EXTREMITIES: No edema. Moving all her extremities. NEUROLOGIC: No focal deficit. Cranial nerves II through XII are grossly intact. No headache. No double vision. SKIN: Not dry. Intact. Turgor - normal. LYMPHATIC: No palpable lymph nodes/no lymphedema. MUSCULOSKELETAL: Normal joints with no swelling. Muscle tone is normal. LABS: Hemoglobin 11.9, hematocrit 36, WBC 9,400, normal differential. Creatinine 0.9, BUN 36, potassium 4.2. ASSESSMENT: 1. Hypertension, seems to be well-controlled at the present time. 2. Diabetes mellitus type 2 controlled. PLAN: 1. Continue Metoprolol 50 in the morning and 25 in the evening. 2. Continue the rest of the medications. 3. Discontinue Rocephin for E. coli urinary tract infection and start the patient on Cefepime 250 mg twice a day for 5 days. CONDITION: Stable. TIME SPENT: More than 30 minutes. Plan and coordination of the patient's care discussed in the presence of nurse. MICHELLE
--- NOTE | 2020-10-16 08:47 | DS ---
DATE OF SERVICE: 10/15/20 FINAL DIAGNOSIS: 1. HYPERTENSION 2. DIABETES MELLITUS TYPE 2-10/10/20 A1C = 7.85 3. INCREASED CONFUSION 4. URINARY TRACT INFECTION - E- COLI 5. DEMENTIA WITH BEHAVIOR DISTURBANCES 6. GENERALIZED WEAKNESS HX: 7. ADVANCED DEMENTIA 8. CHRONIC ANEMIA 9. GENERALIZED WEAKNESS 10. RECURRENT UTI 11. DIABETES MELLITUS TYPE 2 12. CVA 13. FALLS 14. PAROXYSMAL A-FIB WITH RVR - ONE EPISODE WHICH HAS RESOLVED 15. HYPERTENSION 16. DYSLIPIDEMIA 17. HYPOTHYROIDISM 18. UPPER GI BLEED, 01/01 19. CVA, 2001. LT HIP FRACTURE - 2019 SURGICAL HISTORY: 21. APPENDECTOMY 22. TUBAL LIGATION, , LT HIP REPAIR LAST VITALS Temp Pulse Resp BP Pulse Ox 98.0 F 67 18 128/62 95 10/15/20 05:42 10/15/20 05:42 10/15/20 05:42 10/15/20 05:42 10/15/20 05:42 DISCHARGE INSTRUCTIONS: 1. DISCHARGE TODAY: OCTOBER 15, 2020 HOME WITH SON PROVIDING 15/12 TOTAL CARE. 2. MD FOLLOW UP: DR. ALCALA/LUCINA BHAGAT APRN/TAMIA CANDELARIO APRN IN THE OFFICE 10/24/2020 @ 1015 3. BLOOD SUGARS: CHECK EVERY AM BEFORE BREAKFAST AND NEEDED. SHOULD BE KEEPING BLOOD SUGARS BETWEEN 60 TO 200. CONTACT MD IF ANY QUESTIONS. 4. BLOOD PRESSURES: CHECK NEEDED. SYSTOLIC SHOULD BE NO HIGHER THAN 160 AND NO LOWER THAN 90. CALL MD IF ANY CONCERNS. MEDICATIONS AT DISCHARGE: Amlodipine Besylate (Amlodipine Besylate 5 Mg Tablet) 5 mg PO BEDTIME [facility] -- (NEW) Last Admin: 10/14/20 21:02 Dose: 5 mg Atorvastatin Calcium (Atorvastatin Calcium 20 Mg Tablet) 40 mg PO DAILY [facility] Last Admin: 10/15/20 09:03 Dose: 40 mg Cefuroxime Axetil (Cefuroxime Axetil 500 Mg Tablet) 500 mg PO Q12HR [facility] FOR 5 MORE DAYS -- (NEW) Last Admin: 10/15/20 09:03 Dose: 250 mg Donepezil HCl (Donepezil Hcl 10 Mg Tablet) 10 mg PO BEDTIME [facility] Last Admin: 10/14/20 21:01 Dose: 10 mg Levothyroxine Sodium (Levothyroxine Sodium 100 Mcg Tablet) 100 mcg PO QDAC [facility] Last Admin: 10/15/20 05:32 Dose: 100 mcg Lorazepam (Lorazepam 0.5 Mg Tablet) 0.5 mg PO BID [facility] Last Admin: 10/15/20 09:04 Dose: 0.5 mg Losartan Potassium (Losartan Potassium 25 Mg Tablet) 50 mg PO DAILY [facility] Last Admin: 10/15/20 09:03 Dose: 50 mg Memantine (Memantine Hcl 10 Mg Tablet) 10 mg PO DAILY [facility] Last Admin: 10/15/20 09:03 Dose: 10 mg Metformin HCl (Metformin Hcl 500 Mg Tablet) 500 mg PO BIDWM [facility] Last Admin: 10/15/20 09:04 Dose: 500 mg Metoprolol Succinate (Metoprolol Succinate 50 Mg Tab.Er.24h) 50 mg PO DAILY [facility] Last Admin: 10/15/20 09:03 Dose: 50 mg Metoprolol Succinate (Metoprolol Succinate 25 Mg Tab.Er.24h) 25 mg PO BEDTIME [facility] -- (CHANGED) Last Admin: 10/14/20 21:01 Dose: 25 mg Potassium Chloride (Potassium Chloride 10 Meq Capsule.Er) 10 meq PO DAILYWM [facility] -- (CHANGED) Last Admin: 10/15/20 09:03 Dose: 10 meq Saxagliptin Hydrochloride (Saxagliptin Hcl 5 Mg Tablet) 5 mg PO DAILY [facility] Last Admin: 10/15/20 09:03 Dose: 5 mg NEW PRESCRIPTIONS: NORVASC (Amlodipine Besylate) 5 mg PO BEDTIME [facility] -- (NEW) CEFTIN (Cefuroxime Axetil) 500 mg PO Q12HR [facility] FOR 5 MORE DAYS -- (NEW) TOPROL (Metoprolol Succinate 25 Mg Tab.Er.24h) 25 mg PO BEDTIME [facility] -- (CHANGED) Potassium Chloride (10 Meq Capsule.Er)10 meq PO DAILYWM [facility] -- (CHANGED) DISCONTINUED MEDICATIONS: Potassium Chloride 20 meq PO BID [facility] SEROQUEL 25 MG PO DAILY DIET INSTRUCTIONS: HEART HEALTHY, MAY HAVE ADDITIONAL FOODS AT TIMES ACTIVITY: UP IN BEDSIDE CHAIR FOR MEALS AND PRN. ENCOURAGE TO BE UP IN THE CHAIR FALL PRECAUTIONS SMOKING: N/A DISEASE SPECIFIC EDUCATION: DM HYPERTENSION FALL PRECAUTIONS COVID DECUBITUS [facility]ERS PREVENTION HOSPITAL COURSE: This is an 79-year-old white female who was admitted through the emergency room with elevated blood pressure as well as elevated glucose. She was found to have a urinary tract infection which was positive for E. coli. She had increased confusion. She was placed on Rocephin 1 gm IV daily. She does have advanced dementia with behavioral disturbances. Sugar was 170 on admission. A1C was 7.8, blood pressure was 160/90 on admission. She tolerated the Rocephin well. On the second day kidney function was slightly elevated. She was more lethargic and less responsive. She was given one bag of IV fluids and BUN improved. Again, she does have advanced dementia which I feel is responsible for part of her decline. She is not eating as much, sleeping more. She is less alert. She is not oriented to person, place or time. She has to be prompted to eat. She will go home on Ceftin 500 mg b.i.d. for the next 5 days to treat her urinary tract infection. She is more alert however still confused today, day of discharge. White count is 11,000, hemoglobin 12.7, hematocrit 38.6. Sodium 137, potassium 3.5, BUN 33, creatinine 0.77, glucose 128. Initially her Metformin was increased from 500 b.i.d. to 1000 b.i.d. however due to her inconsistencies of eating she did have two episodes of hypoglycemia with sugar into the 50s so we decreased the Metformin again to 500 mg b.i.d. Given her age and the advancement of her dementia, I feel that the risk of hyperglycemia is better than the risk of hypoglycemia. She is not eating consistently so at this point I believe a hemoglobin A1C of 7.8 should be considered acceptable. We did change her blood pressure medication around, started her on Norvasc 5 mg at bedtime and increased her Metoprolol to 25 mg at bedtime. She will be discharged in stable condition. Her son was with her and was there for 24 hour care. He will bring her to the office next week. Her prognosis is poor given her advancing dementia. TIME SPENT: More than 60 minutes. MICHELLE
--- NOTE | 2020-10-16 13:21 | PN ---
DATE OF SERVICE: 10/15/20 SUBJECTIVE: The patient was seen and examined today with the nurse practitioner. The patient's condition is stable. She is on observation, admitted for urinary tract infection with E.coli. She is afebrile. The patient's dementia is more or less end-stage. Hypertension which is labile seems to be well-controlled. The sugar is also well-controlled. The patient is going to be discharged home. She is DNR. Her son is present in the room and all the medications discussed. TIME SPENT: More than 30 minutes. Plan and coordination of the patient's care discussed in the presence of nurse. MICHELLE
--- NOTE | 2020-10-16 13:24 | PN ---
BILLING 10/09/20 ADMISSION DAY LEVEL 5 ON OBSERVATION 10/10/20 INTERMEDIATE ON OBSERVATION 10/11/20 INTERMEDIATE ON OBSERVATION 10/12/20 INTERMEDIATE ON OBSERVATION 10/13/20 INTERMEDIATE ON OBSERVATION 10/14/20 INTERMEDIATE ON OBSERVATION 10/15/20 FINAL DAY, D IN DISCHARGE ON OBSERVATION MTDD
== END 2020-10-15 14:55 | disposition home or self-care (01) ==
LOC: MEDSURG A 15:14 → ED 15:14 → MEDSURG A 19:55
PROVIDERS: ADMIT Internal Medicine; ATTEND Internal Medicine
DX: I10 Essential (primary) hypertension; F03.91 Unspecified dementia, unspecified severity, with behavioral disturbance; E87.6 Hypokalemia; B96.20 Unspecified Escherichia coli [E. coli] as the cause of diseases classified elsewhere; Z20.822 Contact with and (suspected) exposure to COVID-19; N39.0 Urinary tract infection, site not specified; F41.9 Anxiety disorder, unspecified; R82.90 Unspecified abnormal findings in urine; E11.9 Type 2 diabetes mellitus without complications; R53.1 Weakness